=== PATIENT | male | born 1935 | race Caucasian/White ===

== ENCOUNTER → 2016-11-02 | Outpatient (REF) | payer MEDICARE ==
[~2016-11-02] MED LIST: AVOD0.5C OR; HYDR25TA6 OR; NORV5TAB OR; RANI75TA2 OR
[2016-11-04 00:11] LABS: Lyme Disease IgG/IgM Antibodie <0.91 ISR (0.00-0.90); Lyme Disease IgM Ab Quantitati <0.80 index (0.00-0.79)
== END ==
LOC: M LAB REF 10:38
PROVIDERS: ATTEND Nurse Practitioner Adult Health
DX: R53.83 Other fatigue (principal)

== ENCOUNTER 2018-09-12 12:36 | Day surgery (SDC) | payer MEDICARE ==
[~2018-09-12] VITALS: Ht 175.3 cm; Wt 79.8 kg
[~2018-09-12 12:36] MED LIST changes: +AMLO5TAB6 PO; +BRIM0.2S13 OS; +DORZOLAMIDE TIMOLOL OS; +DUTA1CAP PO; +FOLI1TAB11 PO; +HYDR25TAB PO; +ICAP1CAP PO; +LISI-542 PO; +NS 1,000 ML IV ONE; +OSTETAB13 PO; +PROB1CAP10 PO
[2018-09-12] MEDS ORDERED: LIDOCAINE 2% INJ 100 MG/5 ML SDV (FOR ANES.) As Ordered ONE (13:26)
[2018-09-12] MEDS ORDERED: PROPOFOL 200 MG/20 ML VIAL As Ordered ONE (13:26)
--- NOTE | 2018-09-12 13:56 | ROOR ---
Patient Name: Terry Sykes Procedure Date: 09/12/2018 1:24 PM Date of : 1935 Age: 82 Room: [facility] Gender: Male Note Status: Finalized Procedure: Total Colonoscopy to Cecum + Cold Snare Polypectomy + Hemoclips Indications: High risk colon cancer surveillance: Personal history of colonic polyps, Last colonoscopy 3 years ago Providers: Jose A Rogers MD Referring MD: GALLITO CROFT JR, MD Requesting Provider: Medicines: Monitored Anesthesia Care Complications: No immediate complications. Procedure: Pre-Anesthesia Assessment: - The heart rate, respiratory rate, oxygen saturations, blood pressure, adequacy of pulmonary ventilation, and response to care were monitored throughout the procedure. The Colonoscope was introduced through the anus and advanced to the cecum, identified by appendiceal orifice and ileocecal valve. The colonoscopy was performed without difficulty. The patient tolerated the procedure well. The quality of the bowel preparation was excellent. Findings: The perianal and digital rectal examinations were normal. A medium polyp was found at 25 cm proximal to the anus. The polyp was semi-pedunculated. The polyp was removed with a cold snare. Resection and retrieval were complete. To prevent bleeding after the polypectomy, five hemostatic clips were successfully placed (MR conditional). There was no bleeding at the end of the procedure. Multiple small and large-mouthed diverticula were found in the recto-sigmoid colon, sigmoid colon and descending colon. The exam was otherwise without abnormality on direct and retroflexion views. The terminal ileum appeared normal. Impression: - One medium polyp at 25 cm proximal to the anus, removed with a cold snare. Resected and retrieved. Clips (MR conditional) were placed. - Diverticulosis in the recto-sigmoid colon, in the sigmoid colon and in the descending colon. - The examination was otherwise normal on direct and retroflexion views. - The examined portion of the ileum was normal. - The exam was otherwise normal to the cecum. Recommendation: - Patient has a contact number available for emergencies. The signs and symptoms of potential delayed complications were discussed with the patient. Return to normal activities tomorrow. Written discharge instructions were provided to the patient. - High fiber diet. - Discharge patient to home. - Continue present medications. - Await pathology results. - Telephone GI clinic for pathology results in 1 week. - Repeat colonoscopy for surveillance based on pathology results. - Return to referring physician. - Check Portal Online for Path Results.([email or web address]) - The findings and recommendations were discussed with the patient's family. Jose A Rogers MD Jose A Rogers MD 09/12/2018 1:55:56 PM This report has been signed electronically. Number of Addenda: 0 Note Initiated On: 09/12/2018 1:24 PM Estimated Blood Loss: Estimated blood loss: none.
[2018-09-12 14:34] VITALS: BP 151/72
== END 2018-09-12 14:37 | disposition home or self-care (01) ==
LOC: M OPP 12:36
PROVIDERS: ATTEND Internal Medicine Gastroenterology
DX: Z86.010 Personal history of colon polyps (principal); D12.6 Benign neoplasm of colon, unspecified; K57.30 Diverticulosis of large intestine without perforation or abscess without bleeding; Z79.899 Other long term (current) drug therapy; Z87.891 Personal history of nicotine dependence

== ENCOUNTER → 2019-12-11 | Outpatient (REF) | payer MEDICARE ==
[~2019-12-11] MED LIST changes: -DUTA1CAP PO; +DUTA1CAP2 PO; -NS 1,000 ML IV ONE
[2019-12-13 17:07] LABS: Lyme Disease IgG/IgM Antibodie <0.91 ISR (0.00-0.90); Lyme Disease IgM Ab Quantitati <0.80 index (0.00-0.79)
== END ==
LOC: M LAB REF 10:31
PROVIDERS: ATTEND Internal Medicine
DX: M13.80 Other specified arthritis, unspecified site (principal); R53.83 Other fatigue

== ENCOUNTER → 2020-03-28 | Outpatient (CLI) | payer MEDICARE ==
[~2020-03-28] MED LIST changes: +AMLO1TAB24 PO; -AMLO5TAB6 PO
--- NOTE | 2020-03-28 11:52 | REPVR ---
PROCEDURE INFORMATION: Exam: US Pelvis Limited, Male Exam date and time: 03/28/2020 11:36 AM Age: 84 years old Clinical indication: Bladder; Urine retention; Additional info: Urinary retention TECHNIQUE: Imaging protocol: Real-time pelvic ultrasound with image documentation. COMPARISON: No relevant prior studies available. FINDINGS: Prostate: The prostate measures 4.2 x 4.1 x 4.5 cm. Bladder: The urinary bladder measures 4.9 x 2.6 x 5.2 cm prior to voiding, for an estimated volume of 43 mL. Ureteral jets were not visualized. Following voiding, it measures 1.9 x 1.6 x 1.6 cm, for an estimated volume of 3 mL. IMPRESSION: 1. Postvoid residual urinary bladder volume 3 mL. 2. Mild prostatomegaly. Electronically signed by: Jak Martins On 03/28/2020 11:52:42 AM
== END ==
LOC: M RAD 11:19
PROVIDERS: ATTEND Nurse Practitioner Adult Health
DX: N40.1 Benign prostatic hyperplasia with lower urinary tract symptoms (principal); R33.9 Retention of urine, unspecified

== ENCOUNTER 2021-05-12 12:58 | Inpatient (IN) | payer MEDICARE ==
[~2021-05-12] VITALS: Ht 175.3 cm; Wt 77.3 kg
[~2021-05-12 12:58] MED LIST changes: +HYDR-3490 PO; -HYDR25TAB PO; -LISI-542 PO; +LISI-898 PO
--- OUTSIDE RECORDS SUMMARY | 2021-05-12 13:04 | CCD | Continuity of Care Document ---
Author Author Terry BECKHAM P.A. Organization Unknown Address [address] [place] [address], [address] [address] Phone [phone] Problems Active Problems Provider Date Essential hypertension Ct Tavarez MD Onset: 12/21 Social History Type Date Description Comments Sex Unknown ETOH Use Denies alcohol use Tobacco Use Start: Unknown End: Unknown Patient is a former smoker 2 packs a day Smoking Status Reviewed: 12/22/19 Patient is a former smoker 2 packs a day Allergies and adverse reactions Description No Known Drug Allergies Medications Active Medications SIG Qnty Indications Ordering Provide r Date Euflexxa 20mg/2ML Soln Prefill Syr jorge luis robby knee #1 02/05/21 klf/cp robby knee #2 klf/hd 02/19/21, robby knees #3 klf/dw 02/26/2021 Rajinder Guevara MD 01/04/2020 Amlodipine Besylate 5mg Tablets Unknown Lisinopril 10mg Tablets Unknown Dutasteride 0.5mg Capsules Unknown Folic Acid 5mg Capsules Unknown Ascorbic Acid 500mg/5ML Liquid Unknown Preservision Areds Tablets Unknown Vitamin C 250mg Tablets Unknown Gleostine 10mg Capsules Unknown Immunizations Description No Information Available Vital Signs Date Vital Result Comment 04/30/2021 3:35pm Body Temperature 97.1 F Height 67 inches 5'7" Weight 169.00 lb BMI (Body Mass Index) 26.5 kg/m2 05/30/2020 1:16pm Body Temperature 97.1 F Height 69 inches 5'9" Weight 182.31 lb BMI (Body Mass Index) 26.9 kg/m2 Results Description No Information Available Procedures Date Code Description Status 04/30/2021 88721 Office/Outpatient Established Lo w MDM 20-29 Min Completed 04/30/2021 82969 X-Ray Hip Unilateral With Pelvis 2-3 Views Completed 04/30/2021 Inject/Drain Joint/Bursa Major C ompleted 02/26/2021 Inject/Drain Joint/Bursa Major C ompleted 02/19/2021 Inject/Drain Joint/Bursa Major C ompleted 02/05/2021 Inject/Drain Joint/Bursa Major C ompleted 01/03/2021 Inject/Drain Joint/Bursa Major C ompleted Medical Devices Description No Information Available Encounters Type Date Location Provider Dx Diagnosis Office Visit 04/30/2021 3:15p [place] Jak Beckham P.A. M16.11 Unilateral primary osteoarthritis, right hip M70.61 Trochanteric bursitis, right hip Office Visit 02/26/2021 2:15p [place] Arceliabora Guevara PA-C M17.0 Bilateral primary osteoarthritis of knee Office Visit 02/19/2021 1:00p [place] Arcelia LexiiElvis Guevara PA-C M17.0 Bilateral primary osteoarthritis of knee Office Visit 02/05/2021 1:00p [place] Arcelia ShultzElvis Guevara PA-C M17.0 Bilateral primary osteoarthritis of knee Office Visit 01/03/2021 2:00p [place] Maddie Galdamez PA-C M17.0 Bilateral primary osteoarthritis of knee Assessments Date Code Description Provider 04/30/2021 M16.11 Unilateral primary osteoarthriti s, right hip Jak Beckham, P.A. 04/30/2021 M70.61 Trochanteric bursitis, right hip Jak Beckham P.AElvis 02/26/2021 M17.0 Bilateral primary osteoarthritis of knee Arcelia L. HAWA Guevara 02/19/2021 M17.0 Bilateral primary osteoarthritis of knee Arcelia L. PATRICIA GuevaraC 02/05/2021 M17.0 Bilateral primary osteoarthritis of knee Arcelia L. HAWA Guevara 01/03/2021 M17.0 Bilateral primary osteoarthritis of knee Maddie Galdamez PA-C Plan of Treatment 04/30/2021 - Jak Beckham PElvisA.* M16.11 Unilateral primary osteoarthritis, right hip* Follow up:* prn * M70.61 Trochanteric bursitis, right hip Functional Status Description No Information Available Mental Status Description No Information Available Referrals Refer to Dr Reason for Referral Status Appt Date Maddie Galdamez PA-C 01/03/21 Euflexxa Robby Knee pe r ins no auth req based on medical necessity,passed to schedulers sw. Created 0 [address] [facility], [address] [place] [address] [phone]
--- OUTSIDE RECORDS SUMMARY | 2021-05-12 13:04 | CCD | Continuity of Care Document ---
Author Author Terry FONSECA PA-C Organization Unknown Address [address] [place] [address] Phone [phone] Problems Active Problems Provider Date Essential hypertension Ct Tavarez MD Onset: 12/21 Social History Type Date Description Comments Sex Unknown ETOH Use Denies alcohol use Tobacco Use Start: Unknown End: Unknown Patient is a former smoker 2 packs a day Smoking Status Reviewed: 12/22/19 Patient is a former smoker 2 packs a day Allergies, Adverse Reactions, Alerts Description No Known Drug Allergies Medications Active Medications SIG Qnty Indications Ordering Provide r Date Euflexxa 20mg/2ML Soln Prefill Syr jorge luis robby knee #1 02/05/21 klf/cp robby knee #2 klf/hd 02/19/21, robby knees #3 klf/dw 02/26/2021 Rajinder Fonseca MD 01/04/2020 Amlodipine Besylate 5mg Tablets Unknown Lisinopril 10mg Tablets Unknown Dutasteride 0.5mg Capsules Unknown Folic Acid 5mg Capsules Unknown Ascorbic Acid 500mg/5ML Liquid Unknown Preservision Areds Tablets Unknown Vitamin C 250mg Tablets Unknown Gleostine 10mg Capsules Unknown Immunizations Description No Information Available Vital Signs Date Vital Result Comment 05/30/2020 1:16pm Body Temperature 97.1 F Height 69 inches 5'9" Weight 182.31 lb BMI (Body Mass Index) 26.9 kg/m2 12/22/2019 9:46am Body Temperature 97.4 F Height 69 inches 5'9" Weight 180.00 lb BMI (Body Mass Index) 26.6 kg/m2 Results Description No Information Available Procedures Date Code Description Status 02/26/2021 Inject/Drain Joint/Bursa Major C ompleted 02/19/2021 Inject/Drain Joint/Bursa Major C ompleted 02/05/2021 Inject/Drain Joint/Bursa Major C ompleted 01/03/2021 Inject/Drain Joint/Bursa Major C ompleted Medical Devices Description No Information Available Encounters Type Date Location Provider Dx Diagnosis Office Visit 02/26/2021 2:15p [place] Arcelia L. HAWA Fonseca M17.0 Bilateral primary osteoarthritis of knee Office Visit 02/19/2021 1:00p [place] Arcelia L. HAWA Fonseca M17.0 Bilateral primary osteoarthritis of knee Office Visit 02/05/2021 1:00p [place] Arcelia L. HAWA Fonseca M17.0 Bilateral primary osteoarthritis of knee Office Visit 01/03/2021 2:00p [place] Maddie Galdamez PA-C M17.0 Bilateral primary osteoarthritis of knee Assessments Date Code Description Provider 02/26/2021 M17.0 Bilateral primary osteoarthritis of knee Arcelia L. HAWA Fonseca 02/19/2021 M17.0 Bilateral primary osteoarthritis of knee Arcelia L. HAWA Fonseca 02/05/2021 M17.0 Bilateral primary osteoarthritis of knee Arcelia L. HAWA Fonseca 01/03/2021 M17.0 Bilateral primary osteoarthritis of knee Maddie Galdamez PA-C Plan of Treatment 01/03/2021 - Maddie Galdamez PA-C* M17.0 Bilateral primary osteoarthritis of knee* Follow up:* PRN Functional Status Description No Information Available Mental Status Description No Information Available Referrals Refer to Reason for Referral Status Appt Date Maddie Galdamez PA-C 01/03/21 Euflexxa Robby Knee pe r ins no auth req based on medical necessity,passed to schedulers elsa. Teresa 0 [address] [facility], [address] [place] [address] [phone]
--- OUTSIDE RECORDS SUMMARY | 2021-05-12 13:04 | CCD | Continuity of Care Document ---
Author Author Terry FONSECA PA-C Organization Unknown Address [address] [place] [address] Phone [phone] Problems Active Problems Provider Date Essential hypertension [...] #1 02/05/21 klf/cp robby knee #2 klf/hd 02/19/21 Jaime Nguyen MD 01/04/2020 Amlodipine Besylate 5mg Tablets Unknown [...] Information Available Procedures Date Code Description Status 02/19/202134592 Inject/Drain Joint/Bursa Major C ompleted 02/05/202189056 Inject/Drain Joint/Bursa Major C ompleted 01/03/2021 Inject/Drain Joint/Bursa Major C ompleted Medical Devices Description No Information Available Encounters Type Date Location Provider Dx Diagnosis Office Visit 02/19/2021 1:00p [place] Arcelia L. HAWA Fonseca M17.0 Bilateral primary osteoarthritis of knee Office Visit 02/05/2021 1:00p [place] Arcelia Ari HAWA Fonseca M17.0 Bilateral primary osteoarthritis of knee Office Visit 01/03/2021 2:00p [place] Maddie Galdamez PA-C M17.0 Bilateral primary osteoarthritis of knee Assessments Date Code Description Provider 02/19/2021 M17.0 Bilateral primary osteoarthritis of knee Arcelia Chapman HAWA Fonseca 02/05/2021 M17.0 Bilateral primary osteoarthritis of knee Arcelia L. HAWA Fonseca 01/03/2021 M17.0 Bilateral primary osteoarthritis of knee Maddie Galdamez PA-C Plan of Treatment Future Appointment(s):* 02/26/2021 2:15 pm - Arcelia Fonseca PA-C at [place] Functional Status Description No Information Available Mental Status Description No Information Available Referrals Refer to Reason for Referral Status Appt Date Maddie Galdamez PA-C 01/03/21 Euflexxa Robby Knee pe r ins no auth req based on medical necessity,passed to schedulers elsa. Created 0 [facility], [address] [place] [address] [phone]
--- OUTSIDE RECORDS SUMMARY | 2021-05-12 13:04 | CCD | Continuity of Care Document ---
Author Author Terry FONSECA PA-C Organization Unknown Address [address] [place] [address] Phone [phone] Problems Active Problems Provider Date Essential hypertension [...] Provider Dx Diagnosis Office Visit 02/26/2021 2:15p [place] Arcelia L. HAWA Fonseca M17.0 Bilateral primary osteoarthritis of knee Office Visit 02/19/2021 1:00p [place] Arcelia L. HAWA Fonseca M17.0 Bilateral primary osteoarthritis of knee Office Visit 02/05/2021 1:00p [place] Arcelia L. HAWA Fonseca M17.0 Bilateral primary osteoarthritis of knee Office Visit 01/03/2021 2:00p [place] Maddie Galdamez PA-C M17.0 Bilateral primary osteoarthritis [...] necessity,passed to schedulers elsa. Teresa 0 [address] [facility], [address] [place] [address] [phone]
--- OUTSIDE RECORDS SUMMARY | 2021-05-12 13:04 | CCD | Continuity of Care Document ---
Author Author Terry BECKHAM P.A. Organization Unknown Address [address] [place] [address], [address] [address] Phone [phone] Problems Active Problems Provider Date Essential hypertension [...] Available Procedures Date Code Description Status 04/30/2021 21817 Office/Outpatient Established Lo w MDM 20-29 Min Completed 04/30/2021 88918 X-Ray Hip Unilateral With Pelvis 2-3 Views Completed 04/30/2021 Inject/Drain Joint/Bursa Major C ompleted 02/26/2021 Inject/Drain Joint/Bursa Major C ompleted 02/19/2021 Inject/Drain Joint/Bursa Major C ompleted 02/05/2021 Inject/Drain Joint/Bursa Major C ompleted 01/03/2021 Inject/Drain Joint/Bursa Major C ompleted Medical Devices Description No Information Available Encounters Type Date Location Provider Dx Diagnosis Office Visit 04/30/2021 3:15p [place] Jak Beckham P.A. M16.11 Unilateral primary osteoarthritis, right hip M70.61 Trochanteric bursitis, right hip Office Visit 02/26/2021 2:15p [place] Arceliabora Guevara PA-C M17.0 Bilateral primary osteoarthritis of knee Office Visit 02/19/2021 1:00p [place] Arcelia LexiiElvis Guevara PA-C M17.0 Bilateral primary osteoarthritis of knee Office Visit 02/05/2021 1:00p [place] Arcelia ShultzElvis Guevara PA-C M17.0 Bilateral primary osteoarthritis of knee Office Visit 01/03/2021 2:00p [place] Maddie Galdamez PA-C M17.0 Bilateral primary osteoarthritis [...] necessity,passed to schedulers sw. Created 0 [address] [facility], [address] [place] [address] [phone]
--- OUTSIDE RECORDS SUMMARY | 2021-05-12 13:04 | CCD | Continuity of Care Document ---
Author Author Terry SWEENEY PA-C Organization Unknown Address [address] [place] [address] Phone [phone] Problems Active Problems Provider Date Essential hypertension [...] Provider Dx Diagnosis Office Visit 02/26/2021 2:15p [place] Arcelia L. HAWA Guevara M17.0 Bilateral primary osteoarthritis of knee Office Visit 02/19/2021 1:00p [place] Arcelia L. HAWA Guevara M17.0 Bilateral primary osteoarthritis of knee Office Visit 02/05/2021 1:00p [place] Arcelia L. HAWA Guevara M17.0 Bilateral primary osteoarthritis of knee Office Visit 01/03/2021 2:00p [place] Maddie Sweeney PA-C M17.0 Bilateral primary osteoarthritis of knee Assessments Date Code Description Provider 02/26/2021 M17.0 Bilateral primary osteoarthritis of knee Arcelia L. HAWA Guevara 02/19/2021 M17.0 Bilateral primary osteoarthritis of knee Arcelia L. HAWA Guevara 02/05/2021 M17.0 Bilateral primary osteoarthritis of knee Arcelia L. HAWA Guevara 01/03/2021 M17.0 Bilateral primary osteoarthritis of knee Maddie Sweeney PA-C Plan of Treatment 01/03/2021 - Maddie Sweeney PA-C* M17.0 Bilateral primary osteoarthritis of knee* Follow up:* PRN Functional Status Description No Information Available Mental Status Description No Information Available Referrals Refer to Reason for Referral Status Appt Date Maddie Sweeney PA-C 01/03/21 Euflexxa Robby Knee pe r ins no auth req based on medical necessity,passed to schedulers elsa. Teresa 0 [address] [facility], [address] [place] [address] [phone]
--- OUTSIDE RECORDS SUMMARY | 2021-05-12 13:04 | CCD | Continuity of Care Document ---
Author Author Terry FONSECA PA-C Organization Unknown Address [address] [place] [address] Phone [phone] Problems Active Problems Provider Date Essential hypertension [...] Information Available Procedures Date Code Description Status 02/19/202113638 Inject/Drain Joint/Bursa Major C ompleted 02/05/202112299 Inject/Drain Joint/Bursa Major C ompleted 01/03/2021 Inject/Drain Joint/Bursa Major C ompleted Medical Devices Description No Information Available Encounters Type Date Location Provider Dx Diagnosis Office Visit 02/19/2021 1:00p [place] Arcelia Chapman HAWA Fonseca M17.0 Bilateral primary osteoarthritis of knee Office Visit 02/05/2021 1:00p [place] Arcelia Ari HAWA Fonseca M17.0 Bilateral primary osteoarthritis of knee Office Visit 01/03/2021 2:00p [place] Maddie Galdamez PA-C M17.0 Bilateral primary osteoarthritis of knee Assessments Date Code Description Provider 02/19/2021 M17.0 Bilateral primary osteoarthritis of knee Arcelia Chapman HAWA Fonseca 02/05/2021 M17.0 Bilateral primary osteoarthritis of knee Arcelia L. HAWA Fonseca 01/03/2021 M17.0 Bilateral primary osteoarthritis of knee Maddie Galdamez PA-C Plan of Treatment Future Appointment(s):* 02/26/2021 2:15 pm - Arcelia Fonseca PA-C at [place] 01/03/2021 - Maddie Galdamez PA-C* M17.0 Bilateral primary osteoarthritis of knee* Follow up:* PRN Functional Status Description No Information Available Mental Status Description No Information Available Referrals Refer to Dr Reason for Referral Status Appt Date Maddie Galdamez PA-C 01/03/21 Euflexxa Robby Knee pe r ins no auth req based on medical necessity,passed to schedulers sw. Created 0 [address] [facility], [address] [place] [address] [phone]
--- OUTSIDE RECORDS SUMMARY | 2021-05-12 13:05 | CCD ---
Author Author [facility] Organization [facility] Address Unknown Phone Unavailable Care Team Providers Care Pathology Laboratory Director Name Role Phone Janet BROWN MD Unavailable Unavailable Janet BROWN MD Unavailable Unavailable Janet BROWN MD Unavailable Unavailable Janet BROWN MD Unavailable Unavailable Janet BROWN MD Unavailable Unavailable Janet BROWN MD Unavailable Unavailable Janet BROWN MD Unavailable Unavailable Janet BROWN MD Unavailable Unavailable Janet BROWN MD Unavailable Unavailable Janet BROWN MD Unavailable Unavailable Janet BROWN MD Unavailable Unavailable Janet BROWN MD Unavailable Unavailable Janet BROWN MD Unavailable Unavailable Janet BROWN MD Unavailable Unavailable Janet BROWN MD Unavailable Unavailable Janet BROWN MD Unavailable Unavailable Janet BROWN MD Unavailable Unavailable Janet BROWN MD Unavailable Unavailable Janet BROWN MD Unavailable Unavailable Janet BROWN MD Unavailable Unavailable Janet BROWN MD Unavailable Unavailable Janet BROWN MD Unavailable Unavailable Janet BROWN MD Unavailable Unavailable Janet BROWN MD Unavailable Unavailable Janet BROWN MD Unavailable Unavailable Janet BROWN MD Unavailable Unavailable Janet BROWN MD Unavailable Unavailable Janet BROWN MD Unavailable Unavailable Janet BROWN MD Unavailable Unavailable Janet BROWN MD Unavailable Unavailable Janet BROWN MD Unavailable Unavailable Janet BROWN MD Unavailable Unavailable MADISSOOJanet MD Unavailable Unavailable MADISSOOJanet MD Unavailable Unavailable MADISSOOJanet MD Unavailable Unavailable MADISSOOJanet MD Unavailable Unavailable MADISSOOJanet MD Unavailable Unavailable MADISSOO, Janet FERREIRA MD Unavailable Unavailable MADISSOOJanet MD Unavailable Unavailable MADISSOOJanet MD Unavailable Unavailable MADISSOOJanet MD Unavailable Unavailable MADISSOO, Janet FERREIRA MD Unavailable Unavailable MADISSOO, Janet FERREIRA MD Unavailable Unavailable MADISSOO, Janet FERREIRA MD Unavailable Unavailable MADISSOO, Janet FERREIRA MD Unavailable Unavailable MADISSOO, Janet FERREIRA MD Unavailable Unavailable MADISSOO, Janet FERREIRA MD Unavailable Unavailable MADISSOO, Janet FERREIRA MD Unavailable Unavailable MADISSOO, Janet FERREIRA MD Unavailable Unavailable MADISSOO, Janet FERREIRA MD Unavailable Unavailable MADISSOO, Janet FERREIRA MD Unavailable Unavailable MADISSOO, Janet FERREIRA MD Unavailable Unavailable MADISSOOJanet MD Unavailable Unavailable MADISSOOJanet MD Unavailable Unavailable MADISSOOJanet MD Unavailable Unavailable MADISSOOJaent MD Unavailable Unavailable MADISSOOJanet MD Unavailable Unavailable MADISSOOJanet MD Unavailable Unavailable MADISSOOJanet MD Unavailable Unavailable MADISSOOJanet MD Unavailable Unavailable MADISSOOJanet MD Unavailable Unavailable MADISSOOJanet MD Unavailable Unavailable MADISSOOJanet MD Unavailable Unavailable MADDEDRICKOOJanet MD Unavailable Unavailable MADDEDRICKOOJanet MD Unavailable Unavailable MADISSOOJanet MD Unavailable Unavailable MADISSOOJanet MD Unavailable Unavailable MADISSOOJanet MD Unavailable Unavailable MADDEDRICKOOJanet MD Unavailable Unavailable MADDEDRICKOOJanet MD Unavailable Unavailable MADDEDRICKOOJanet MD Unavailable Unavailable MADDEDRICKOOJanet MD Unavailable Unavailable MADDEDRICKOOJanet MD Unavailable Unavailable MADDEDRICKOOJanet MD Unavailable Unavailable MADDEDRICKOOJanet MD Unavailable Unavailable MADDEDRICKOOJanet MD Unavailable Unavailable MADDEDRICKOOJanet MD Unavailable Unavailable MADDEDRICKOOJanet MD Unavailable Unavailable MADDEDRICKOOJanet MD Unavailable Unavailable MADISSOOJanet MD Unavailable Unavailable MADISSOO, Janet FERREIRA MD Unavailable Unavailable MADISSOO, Janet FERREIRA MD Unavailable Unavailable MADISSOO, Janet HANNA MD Unavailable Unavailable MADISSOOJanet MD Unavailable Unavailable MADISSOO, Janet FERREIRA MD Unavailable Unavailable Fish, [facility], PA-C Unavailable Unavailabl e Fish, [facility], PA-C Unavailable Unavailabl e Fish, [facility], PA-C Unavailable Unavailabl e Fish, [facility], PA-C Unavailable Unavailabl e Fish, [facility], PA-C Unavailable Unavailabl e Fish, [facility], PA-C Unavailable Unavailabl e Fish, [facility], PA-C Unavailable Unavailabl e Fish, [facility], PA-C Unavailable Unavailabl e Fish, [facility], PA-C Unavailable Unavailabl e Fish, [facility], PA-C Unavailable Unavailabl e Fish, [facility], PA-C Unavailable Unavailabl e Fish, [facility], PA-C Unavailable Unavailabl e Fish, [facility], PA-C Unavailable Unavailabl e Fish, [facility], PA-C Unavailable Unavailabl e Fish, [facility], PA-C Unavailable Unavailabl e Fish, [facility], PA-C Unavailable Unavailabl e Fish, [facility], PA-C Unavailable Unavailabl e Fish, [facility], PA-C Unavailable Unavailabl e Fish, [facility], PA-C Unavailable Unavailabl e Fish, [facility], PA-C Unavailable Unavailabl e Fish, [facility], PA-C Unavailable Unavailabl e Fish, [facility], PA-C Unavailable Unavailabl e Fish, [facility], PA-C Unavailable Unavailabl e Fish, [facility], PA-C Unavailable Unavailabl e Fish, [facility], PA-C Unavailable Unavailabl e Fish, [facility], PA-C Unavailable Unavailabl e Fish, [facility], PA-C Unavailable Unavailabl e Fish, [facility], PA-C Unavailable Unavailabl e Fish, [facility], PA-C Unavailable Unavailabl e Fish, Lea Arcelia MPAS, PA-C Unavailable Unavailabl e Fish, Lea Paniagua MPAS, PA-C Unavailable Unavailabl e Fish, Lea Paniagua MPAS, PA-C Unavailable Unavailabl e Fish, Lea Paniagua MPAS, PA-C Unavailable Unavailabl e Fish, Lea Paniagua MPAS, PA-C Unavailable Unavailabl e Fish, Lea Paniagua MPAS, PA-C Unavailable Unavailabl e Fish, Lea Paniagua MPAS, PA-C Unavailable Unavailabl e MCELHERAN, JAC PA Unavailable Unavailable MCELHERAN, JAC PA Unavailable Unavailable MCELHERAN, JAC PA Unavailable Unavailable MCELHERAN, JAC PA Unavailable Unavailable MCELHERAN, JAC PA Unavailable Unavailable MCELHERAN, JAC PA Unavailable Unavailable MCELHERAN, JAC PA Unavailable Unavailable MCELHERAN, JAC PA Unavailable Unavailable MCELHERAN, JAC PA Unavailable Unavailable MCELHERAN, JAC PA Unavailable Unavailable MCELHERAN, JAC PA Unavailable Unavailable MCELHERAN, JAC PA Unavailable Unavailable MCELHERAN, JAC PA Unavailable Unavailable MCELHERAN, JAC PA Unavailable Unavailable MCELHERAN, JAC PA Unavailable Unavailable MCELHERAN, JAC PA Unavailable Unavailable MCELHERAN, JAC PA Unavailable Unavailable MCELHERAN, JAC PA Unavailable Unavailable MCELHERAN, JAC PA Unavailable Unavailable MCELHERAN, JAC PA Unavailable Unavailable MCELHERAN, JAC PA Unavailable Unavailable MCELHERAN, JAC PA Unavailable Unavailable MCELHERAN, JAC PA Unavailable Unavailable MCELHERAN, JAC PA Unavailable Unavailable MCELHERAN, JAC PA Unavailable Unavailable MCELHERAN, JAC PA Unavailable Unavailable MCELHERAN, JAC PA Unavailable Unavailable MCELHERAN, JAC PA Unavailable Unavailable MCELHERAN, JAC PA Unavailable Unavailable Edgardo Valenzuela MD Unavailable Unavailable Edgardo Valenzuela MD Unavailable Unavailable Edgardo Valenzuela MD Unavailable Unavailable Edgardo Valenzuela MD Unavailable Unavailable Edgardo Valenzuela MD Unavailable Unavailable Edgardo Valenzuela MD Unavailable Unavailable [facility] CenterEdgardo canela MD Unavailable Unavailable NicolasEdgardo canela MD Unavailable Unavailable [facility] CenterEdgardo canela MD Unavailable Unavailable NicolasEdgardo canela MD Unavailable Unavailable NicolasEdgardo canela MD Unavailable Unavailable [place] CenterEdgardo canela MD Unavailable Unavailable [place] CenterEdgardo canela MD Unavailable Unavailable NicolasEdgardo canela MD Unavailable Unavailable NicolasEdgardo canela MD Unavailable Unavailable [place] CenterEdgardo MD Unavailable Unavailable NicolasEdgardo MD Unavailable Unavailable NicolasEdgardo MD Unavailable Unavailable NicolasEdgardo MD Unavailable Unavailable NciolasEdgardo MD Unavailable Unavailable [place] CenterEdgardo MD Unavailable Unavailable NicolasEdgardo MD Unavailable Unavailable NicolasEdgardo MD Unavailable Unavailable NicolasEdgardo MD Unavailable Unavailable NicolasEdgardo MD Unavailable Unavailable [place] CenterEdgardo MD Unavailable Unavailable [place] CenterEdgardo MD Unavailable Unavailable NicolasEdgardo MD Unavailable Unavailable NicolasEdgardo MD Unavailable Unavailable NicolasEdgardo MD Unavailable Unavailable [place] CenterEdgardo MD Unavailable Unavailable [place] CenterEdgardo MD Unavailable Unavailable [place] CenterEdgadro MD Unavailable Unavailable NicolasEdgardo MD Unavailable Unavailable NicolasEdgardo MD Unavailable Unavailable NicolasEdgardo MD Unavailable Unavailable [place] CenterEdgardo MD Unavailable Unavailable NicolasEdgardo MD Unavailable Unavailable [place] CenterEdgardo MD Unavailable Unavailable NicolasEdgardo MD Unavailable Unavailable NicolasEdgardo MD Unavailable Unavailable [place] CenterEdgardo MD Unavailable Unavailable NicolasEdgardo MD Unavailable Unavailable [place] CenterEdgardo MD Unavailable Unavailable NicolasEdgardo MD Unavailable Unavailable NicolasEdgardo MD Unavailable Unavailable [place] CenterEdgardo MD Unavailable Unavailable NicolasEdgardo MD Unavailable Unavailable NicolasEdgardo MD Unavailable Unavailable NicolasEdgardo canela MD Unavailable Unavailable NicolasEdgardo canela MD Unavailable Unavailable NicolasEdgardo MD Unavailable Unavailable [place] CenterEdgardo MD Unavailable Unavailable NicolasEdgardo canela MD Unavailable Unavailable [place] CenterEdgardo MD Unavailable Unavailable [place] CenterEdgardo canela MD Unavailable Unavailable NicolasEdgardo canela MD Unavailable Unavailable NicolasEdgardo canela MD Unavailable Unavailable [place] CenterEdgardo MD Unavailable Unavailable NicolasEdgardo MD Unavailable Unavailable NicolasEdgardo MD Unavailable Unavailable NicolasEdgardo MD Unavailable Unavailable [place] CenterEdgardo MD Unavailable Unavailable [place] CenterEdgardo MD Unavailable Unavailable NicolasEdgardo MD Unavailable Unavailable [place] CenterEdgardo MD Unavailable Unavailable [place] CenterEdgardo MD Unavailable Unavailable [place] CenterEdgardo MD Unavailable Unavailable [place] CenterEdgardo MD Unavailable Unavailable NicolasEdgardo MD Unavailable Unavailable NicolasEdgardo MD Unavailable Unavailable Edgardo Valenzuela MD Unavailable Unavailable Edgardo Valenzuela MD Unavailable Unavailable Edgardo Valenzuela MD Unavailable Unavailable Edgardo Valenzuela MD Unavailable Unavailable Edgardo Valenzuela MD Unavailable Unavailable Edgardo Valenzuela MD Unavailable Unavailable Edgardo Valenzuela MD Unavailable Unavailable Edgardo Valenzuela MD Unavailable Unavailable Edgardo Valenzuela MD Unavailable Unavailable Edgarod Valenzuela MD Unavailable Unavailable Edgardo Valenzuela MD Unavailable Unavailable Edgardo Valenzuela MD Unavailable Unavailable Edgardo Valenzuela MD Unavailable Unavailable Edgardo Valenzuela MD Unavailable Unavailable Edgardo Valenzuela MD Unavailable Unavailable Galdamez, Maddie PA Unavailable Unavailable Galdamez, Maddie PA Unavailable Unavailable Galdamez, Maddie PA Unavailable Unavailable Galdamez, Maddie PA Unavailable Unavailable Galdamez, Maddie PA Unavailable Unavailable Galdamez, Maddie PA Unavailable Unavailable Galdamez, Maddie PA Unavailable Unavailable Galdamez, Maddie PA Unavailable Unavailable [place], J Alexia ANP Unavailable Unavailable [place], J Alexia ANP Unavailable Unavailable [place], J Alexia ANP Unavailable Unavailable [place], J Alexia ANP Unavailable Unavailable [place], J Alexia ANP Unavailable Unavailable [place], J Alexia ANP Unavailable Unavailable [place], J Alexia ANP Unavailable Unavailable [place], J Alexia ANP Unavailable Unavailable [place], J Alexia ANP Unavailable Unavailable [place], J Alexia ANP Unavailable Unavailable [place], J Alexia ANP Unavailable Unavailable [place], J Alexia ANP Unavailable Unavailable [place], J Alexia ANP Unavailable Unavailable [place], J Alexia ANP Unavailable Unavailable [place], J Alexia ANP Unavailable Unavailable [place], J Alexia ANP Unavailable Unavailable [place], J Alexia ANP Unavailable Unavailable [place], J Alexia ANP Unavailable Unavailable [place], J Alexia ANP Unavailable Unavailable [place], J Alexia ANP Unavailable Unavailable [place], J Alexia ANP Unavailable Unavailable [place], J Alexia ANP Unavailable Unavailable [place], J Alexia ANP Unavailable Unavailable [place], J Alexia ANP Unavailable Unavailable [place], J Alexia ANP Unavailable Unavailable [place], J Alexia ANP Unavailable Unavailable [place], J Alexia ANP Unavailable Unavailable [place], J Alexia ANP Unavailable Unavailable [place], J Alexia ANP Unavailable Unavailable [place], J Alexia ANP Unavailable Unavailable [place], J Alexia ANP Unavailable Unavailable [place], J Alexia ANP Unavailable Unavailable [place], J Alexia ANP Unavailable Unavailable [place], J Alexia ANP Unavailable Unavailable [place], J Alexia ANP Unavailable Unavailable [place], J Alexia ANP Unavailable Unavailable [place], J Alexia ANP Unavailable Unavailable [place], J Alexia ANP Unavailable Unavailable [place], J Alexia ANP Unavailable Unavailable [place], J Alexia ANP Unavailable Unavailable [place], J Alexia ANP Unavailable Unavailable [place], J Alexia ANP Unavailable Unavailable [place], J Aelxia ANP Unavailable Unavailable [place], J Alexia ANP Unavailable Unavailable [place], J Alexia ANP Unavailable Unavailable [place], J Alexia ANP Unavailable Unavailable [place], J Alexia ANP Unavailable Unavailable [place], J Alexia ANP Unavailable Unavailable [place], J Alexia ANP Unavailable Unavailable [place], J Alexia ANP Unavailable Unavailable [place], J Alexia ANP Unavailable Unavailable [place], J Alexia ANP Unavailable Unavailable [place], J Alexia ANP Unavailable Unavailable [place], J Alexia ANP Unavailable Unavailable [place], J Alexia ANP Unavailable Unavailable [place], J Alexia ANP Unavailable Unavailable [place], J Alexia ANP Unavailable Unavailable [place], J Alexia ANP Unavailable Unavailable [place], J Alexia ANP Unavailable Unavailable [place], J Alexia ANP Unavailable Unavailable [place], J Alexia ANP Unavailable Unavailable [place], J Alexia ANP Unavailable Unavailable [place], J Alexia ANP Unavailable Unavailable [place], J Alexia ANP Unavailable Unavailable Re-disclosure Warning The records that you are about to access may contain information from federally-assisted alcohol or drug abuse programs. If such information is present, then the following federally mandated warning applies: This information has been disclosed to you from records protected by federal confidentiality rules (42 CFR part 2). The federal rules prohibit you from making any further disclosure of this information unless further disclosure is expressly permitted by the written consent of the person to whom it pertains or as otherwise permitted by 42 CFR part 2. A general authorization for the release of medical or other information is NOT sufficient for this purpose. The Federal rules restrict any use of the information to criminally investigate or prosecute any alcohol or drug abuse patient.The records that you are about to access may contain highly sensitive health information, the redisclosure of which is protected by Article 27-F of the [facility] Public Health law. If you continue you may have access to information: Regarding HIV / AIDS; Provided by facilities licensed or operated by the [facility] Office of Mental Health; or Provided by the [facility] Office for People With Developmental Disabilities. If such information is present, then the following [facility] mandated warning applies: This information has been disclosed to you from confidential records which are protected by state law. State law prohibits you from making any further disclosure of this information without the specific written consent of the person to whom it pertains, or as otherwise permitted by law. Any unauthorized further disclosure in violation of state law may result in a fine or assisted sentence or both. A general authorization for the release of medical or other information is NOT sufficient authorization for further disc losure. Family History Family Member Name Family Member Gender Family Member Status Date o f Status Description Data Source(s) Unknown Unknown Problem [facility] ([facility]) Unknown Female Problem [facility] ([facility]) Encounters Encounter Providers Location Date Indications Data Source(s ) OFFICE OUTPATIENT VISIT 15 MINUTES Attender: JAC MATTHEWS Physical Therapy 04/30/2021 03:15:00 PM EDT [facility] ([facility]) Office Visit Attender: Arcelia JOSHUA PA-C Physical Therapy 02/26/2021 02:15:00 PM EDT [facility] ([facility]) Office Visit Attender: Arcelia JOSHUA PA-C Physical Therapy 02/19/2021 01:00:00 PM EDT [facility] ([facility]) Office Visit Attender: Arcelia JOSHUA PA-C Physical Therapy 02/05/2021 01:00:00 PM EDT [facility] ([facility]) Office Visit Attender: Maddie MATTHEWS Physical Therapy 12/11 02:00:00 PM EDT [facility] ([facility]) Outpatient Attender: Thiago Wang 0 12/13/2020 11:40:00 AM EDT [facility] ([facility] ) Outpatient Attender: Thiago Wang 1 08/12/2019 07:40:00 AM EST [facility] ([facility] ) Outpatient Attender: HANNA Dillon/ Raymon king 04/09/2020 09:10:00 AM EDT [facility] ([facility]) Outpatient Attender: Alexia Wang 10:15:00 AM EDT [facility] ([facility] ) Immunizations Vaccine Date Status Description Data Source(s) COVID-19 VACCINE Moderna 08/26/2020 12:00:00 AM EST completed [facility] Vaccine Series Complete: YESThis Data wa s Submitted to [facility] [employer]. COVID-19 VACCINE Moderna 07/29/2020 12:00:00 AM EST completed [facility] Vaccine Series Complete: NOThis Data was Submitted to [facility] [employer]. Influenza, injectable, MDCK, preservative free, maria c valent 04/12/2020 09:03:00 AM EDT completed [facility] Influenza, injectable, MDCK, preservative free, maria c valent 04/12/2020 07:50:00 AM EDT completed [facility] ([facility]) Medications Medication Brand Name Start Date Product Form Dose Route Admi nistrative Instructions Pharmacy Instructions Status Indications Reaction Description Data Source(s) 24 HR mirabegron 50 MG Extended Release Oral Tablet [Myrbetr iq] Myrbetriq 10/22/2020 12:00:00 AM EDT ORAL completed [facility] ([facility]) Administration Of Flu Vaccine 04/12/2020 12:00:00 AM EDT completed [facility] Medication administered onsite 24 HR mirabegron 50 MG Extended Release Oral Tablet [Myrbetr iq] Myrbetriq 04/09/2020 12:00:00 AM EDT ORAL active [facility] ([facility]) Insurance Providers Payer name Policy type / Coverage type Policy ID Covered republican ID Covered republican's relationship to kyle Policy Kyle Plan Information MEDICARE [id number] SP [id number] Medicare Medigap Part B [id number] Self [id number] MEDICARE [id number] SP [id number] MEDICARE [id number] SP [id number] A Medicare Natl Govt Servic Medicare Primary [id number] Self [id number] Medicare Natl Govt Servic Medicare Primary [id number] Self [id number] Medicare Natl Govt Servic Medicare Primary [id number] Self [id number] Medicare Natl Govt Servic Medicare Primary [id number] Self [id number] Medicare Natl Govt Servic Medicare Primary [id number] Self Medicare Medicare Primary [id number] Self [id number] A [employer] Supplemental Plan Medigap Part B [id number] Self [employer] Healthcare Opt Medigap Part B [id number] Self [id number] MEDICARE C [id number] S [id number] A AARP O [id number] S [id number] AARP HEALTH CARE OPTIONS [id number] SP [id number] MEDICARE C [id number] S [id number] AARP O [id number] S [id number] AARP HEALTH CARE OPTIONS [id number] SP [id number] Aarp Supplemental Plan Medigap Part B [id number] Self [id number] Medicare Medicare Primary [id number] Self [id number] Aarp Healthcare Opt Medigap Part B [id number] Self Aarp Health Care Medigap Part B [id number] Self A[employer] Health Care Options Medigap Part B [id number] Self [id number] Medicare [place] Medicare Primary [id number] Self 1 [id number] Problems, Conditions, and Diagnoses Code Display Name Description Problem Type Effective Dates Data Source(s) [id number] Overactive bladder Overactive bladder Problem 12:00:00 AM EDT [facility] ([facility]) Surgeries/Procedures Procedure Description Date Indications Data Source(s) ARTHROCENTESIS ASPIR&/INJECTION MAJOR JT/BURSA 021 12:00:00 AM EDT [facility] ([facility]) X-Ray Hip Unilateral With Pelvis 2-3 Views 04/30/2021 12:00:00 AM EDT [facility] ([facility]) OFFICE OUTPATIENT VISIT 15 MINUTES 04/30/2021 12:00:00 AM EDT [facility] ([facility]) ARTHROCENTESIS ASPIR&/INJECTION MAJOR JT/BURSA 021 12:00:00 AM EDT [facility] ([facility]) ARTHROCENTESIS ASPIR&/INJECTION MAJOR JT/BURSA 021 12:00:00 AM EDT [facility] ([facility]) ARTHROCENTESIS ASPIR&/INJECTION MAJOR JT/BURSA 021 12:00:00 AM EDT [facility] ([facility]) ARTHROCENTESIS ASPIR&/INJECTION MAJOR JT/BURSA 021 12:00:00 AM EDT [facility] ([facility]) OFFICE OUTPATIENT VISIT 25 MINUTES 12/13/2020 12:00:00 AM EDT [facility] ([facility]) ECG ROUTINE ECG W/LEAST 12 LDS W/I&R 06/11/2020 12:00: 00 AM EST [facility] ([facility]) Colonoscopy 04/09/2020 12:00:00 AM EDT M EDENT ([facility]) ALEKSANDAR POST-VOIDING RESIDUAL URINE&/BLDR CAP 04/09/2020 12:00:00 AM EDT [facility] ([facility]) ARTHROCENTESIS ASPIR&/INJECTION MAJOR JT/BURSA 020 12:00:00 AM EDT [facility] ([facility]) Results ID Date Data Source [id number] 12/13/2020 11:35:00 AM EDT [facility] ([facility]) Name Value Range Interpretation Code Description Data Nano rce(s) Supporting Document(s) Cholesterol [Mass/volume] in Serum or Plasma 212 mg/dL 131-200 [facility] ([facility]) Triglyceride [Mass/volume] in Serum or Plasma 125 mg/dL 30-150 [facility] ([facility]) Cholesterol in HDL [Mass/volume] in Serum or Plasma 42 mg/dL 35-60 [facility] ([facility]) Cholesterol in LDL [Mass/volume] in Serum or Plasma by calcu lation 145 CALC 50-159 [facility] ID Date Data Source [id number] 12/13/2020 11:35:00 AM EDT [facility] ([facility]) Name Value Range Interpretation Code Description Data Nano rce(s) Supporting Document(s) Glucose mean value [Mass/volume] in Blood Estimated fr om glycated hemoglobin 137 mg/dL 60-110 [facility] Hemoglobin A1c/Hemoglobin.total in Blood 6.4 % [facility] ([facility]) Lab Result Notes: Pre-Diabetes 5.7 - 6.4 % Diabetes = or > 6.5% ID Date Data Source [id number] 12/13/2020 11:35:00 AM EDT [facility] ([facility]) Name Value Range Interpretation Code Description Data Nano rce(s) Supporting Document(s) Erythrocytes [#/volume] in Blood by Automated count 4.43 x10*6/UL 4.2 0-6.30 [facility] ([facility]) Leukocytes [#/volume] in Blood by Automated count 8.9 x10*3/UL 4.1-10 .9 [facility] ([facility]) Hemoglobin [Mass/volume] in Blood 13.0 g/dL 12.0-18.0 [facility] ([facility]) Hematocrit [Volume Fraction] of Blood by Automated count 37.5 % 3 7.0-51.0 [facility] ([facility] MCV 84.5 fL 80.0-97.0 [facility] ([facility]) MCH 29.4 pg 26.0-32.0 [facility] ([facility]) MCHC 34.8 g/dL 31.0-38.0 [facility] ([facility]) Erythrocyte distribution width [Ratio] by Automated count 12.6 % 11.6-13.7 [facility] ([facility] MPV 8.3 FL 7.8-11.0 [facility] ([facility]) Platelets [#/volume] in Blood by Automated count 289 x10*3/UL 140-440 [facility] ([facility] Lymph % 26.6 % 10.0-58.5 [facility] ([facility]) Neut % 67.1 % 37.0-92.0 [facility] ([facility]) Mid % 6.3 % 1.7-9.3 [facility] ([facility]) Lymph # 2.3 x10*3/UL 0.6-4.1 [facility] ([facility]) Mid # 0.6 x10*3/UL 0.1-0.6 [facility] ([facility]) Neut # 6.0 x10*3/UL 2.0-7.8 [facility] ([facility]) ID Date Data Source [id number] 12/13/2020 11:35:00 AM EDT [facility] Name Value Range Interpretation Code Description Data Nano rce(s) Supporting Document(s) Glucose [Mass/volume] in Serum or Plasma 120 mg/dL 74-99 [facility] ([facility]) 100-125 mg/dL PRE-DIABETES/FASTING >126 mg/dL DIABETES/FASTING Urea nitrogen [Mass/volume] in Serum or Plasma 28 mg/dL 7-18 [facility] ([facility]) Sodium [Moles/volume] in Serum or Plasma 140 meq/L 136-145 [facility] ([facility]) Creatinine 1.5 mg/dL 0.6-1.3 [facility] Chloride [Moles/volume] in Serum or Plasma 103 meq/L 98-107 [facility] ([facility]) Potassium [Moles/volume] in Serum or Plasma 4.0 meq/L 3.5-5.1 [facility] ([facility]) Calcium [Mass/volume] in Serum or Plasma 8.8 mg/dL 8.5-10.1 [facility] ([facility]) Carbon dioxide, total [Moles/volume] in Serum or Plasma 31 meq/L 21 -32 [facility] ([facility]) Alkaline phosphatase isoenzyme [Units/volume] in Serum or Pl asma 70 mg/dL 46-116 [facility] ([facility]) Total Bilirubin 0.5 mg/dL 0.2-1.0 [facility] ([facility]) Aspartate aminotransferase [Enzymatic activity/volume] in Serum or Plasma 11 U/L 15-37 [facility] ([facility] ) Alanine aminotransferase [Enzymatic activity/volume] in Seru m or Plasma 13 U/L 12-78 [facility] ([facility]) Albumin [Mass/volume] in Serum or Plasma 3.3 g/dL 3.4-5.0 [facility] ([facility]) Proteinase 3 Ab [Units/volume] in Serum 6.6 g/dL 6.4-8.2 [facility] ([facility]) A/G Ratio 1.00 CALC 1.00-1.90 [facility] ([facility]) Glomerular filtration rate/1.73 sq M pre dicted among non-blacks [Volume Rate/Area] in Serum or Plasma by Creatinine-based formula (MDRD) 44 mL/min [facility] ([facility]) Glomerular filtration rate/1.73 sq M pre dicted among blacks [Volume Rate/Area] in Serum or Plasma by Creatinine-based formula (MDRD) 54 mL/min [facility] ([facility]) <content>CHRONIC KIDNEY DISEASE STAGING PER NKF</content>
<content></content>
<content>STAGE I & II GFR >= 60 NORMAL TO MILDLY DECREASED</content>
<content>STAGE III GFR 30-59 MODERATELY DECREASED</content>
<content>STAGE IV GFR 15-29 SEVERELY DECREASED</content>
<content>STAGE V GFR <15 VERY LITTLE GFR LEFT</content>
<content>ESRD GFR <15 ON [facility]</content>
<content></content> ID Date Data Source [id number] 12/13/2020 11:35:00 AM EDT [facility] ([facility]) Name Value Range Interpretation Code Description Data Nano rce(s) Supporting Document(s) Hemoglobin A1c/Hemoglobin.total in Blood Laboratory test result [facility] ([facility]) ID Date Data Source [id number] 06/11/2020 09:10:00 AM EST [facility] ([facility]) Name Value Range Interpretation Code Description Data Nano rce(s) Supporting Document(s) Glucose [Mass/volume] in Serum or Plasma 118 mg/dL 74-99 [facility] ([facility]) 100-125 mg/dL PRE-DIABETES/FASTING >126 mg/dL DIABETES/FASTING Sodium [Moles/volume] in Serum or Plasma 140 meq/L 136-145 [facility] ([facility]) Urea nitrogen [Mass/volume] in Serum or Plasma 29 mg/dL 7-18 [facility] ([facility]) Creatinine 1.5 mg/dL 0.6-1.3 [facility] Carbon dioxide, total [Moles/volume] in Serum or Plasma 30 meq/L 21 -32 [facility] ([facility]) Chloride [Moles/volume] in Serum or Plasma 100 meq/L 98-107 [facility] ([facility]) Potassium [Moles/volume] in Serum or Plasma 3.9 meq/L 3.5-5.1 [facility] ([facility]) Alkaline phosphatase isoenzyme [Units/volume] in Serum or Pl asma 63 mg/dL 46-116 [facility] ([facility]) Calcium [Mass/volume] in Serum or Plasma 9.1 mg/dL 8.5-10.1 [facility] ([facility]) Total Bilirubin 0.6 mg/dL 0.2-1.0 [facility] ([facility]) Alanine aminotransferase [Enzymatic activity/volume] in Seru m or Plasma 18 U/L 12-78 [facility] ([facility]) Aspartate aminotransferase [Enzymatic activity/volume] in Serum or Plasma 12 U/L 15-37 [facility] ([facility] ) Albumin [Mass/volume] in Serum or Plasma 3.6 g/dL 3.4-5.0 [facility] ([facility]) Proteinase 3 Ab [Units/volume] in Serum 6.9 g/dL 6.4-8.2 [facility] ([facility]) Glomerular filtration rate/1.73 sq M pre dicted among non-blacks [Volume Rate/Area] in Serum or Plasma by Creatinine-based formula (MDRD) 44 mL/min [facility] ([facility]) A/G Ratio 1.09 CALC 1.00-1.90 [facility] ([facility]) Glomerular filtration rate/1.73 sq M pre dicted among blacks [Volume Rate/Area] in Serum or Plasma by Creatinine-based formula (MDRD) 54 mL/min [facility] ([facility]) <content>CHRONIC KIDNEY DISEASE STAGING PER NKF</content>
<content></content>
<content>STAGE I & II GFR >= 60 NORMAL TO MILDLY DECREASED</content>
<content>STAGE III GFR 30-59 MODERATELY DECREASED</content>
<content>STAGE IV GFR 15-29 SEVERELY DECREASED</content>
<content>STAGE V GFR <15 VERY LITTLE GFR LEFT</content>
<content>ESRD GFR <15 ON [address]</content>
<content></content> ID Date Data Source [id number] 06/11/2020 09:10:00 AM EST [facility] ([facility]) Name Value Range Interpretation Code Description Data Nano rce(s) Supporting Document(s) Hemoglobin A1c/Hemoglobin.total in Blood 6.3 % [facility] Lab Result Notes: Pre-Diabetes 5.7 - 6.4 % Diabetes = or > 6.5% Glucose mean value [Mass/volume] in Blood Estimated fr om glycated hemoglobin 134 mg/dL 60-110 [facility] ([facility] ) ID Date Data Source [id number] 06/11/2020 09:10:00 AM EST [facility] ([facility]) Name Value Range Interpretation Code Description Data Nano rce(s) Supporting Document(s) Leukocytes [#/volume] in Blood by Automated count 11.4 x10*3/UL 4.1-1 0.9 [facility] ([facility]) NOTE: RESULT VERIFIED. Hemoglobin [Mass/volume] in Blood 13.6 g/dL 12.0-18.0 [facility] ([facility]) Erythrocytes [#/volume] in Blood by Automated count 4.56 x10*6/UL 4.2 0-6.30 [facility] ([facility]) Hematocrit [Volume Fraction] of Blood by Automated count 38.2 % 3 7.0-51.0 [facility] ([facility]) MCHC 35.8 g/dL 31.0-38.0 [facility] ([facility]) MCH 29.9 pg 26.0-32.0 [facility] ([facility]) MCV 83.6 fL 80.0-97.0 [facility] ([facility]) Platelets [#/volume] in Blood by Automated count 326 x10*3/UL 140-440 [facility] ([facility]) Erythrocyte distribution width [Ratio] by Automated count 12.2 % 11.6-13.7 [facility] ([facility]) MPV 8.5 FL 7.8-11.0 [facility] ([facility]) Lymph % 23.7 % 10.0-58.5 [facility] ([facility]) Mid % 5.6 % 1.7-9.3 [facility] ([facility]) Lymph # 2.7 x10*3/UL 0.6-4.1 [facility] ([facility]) Mid # 0.6 x10*3/UL 0.1-0.6 [facility] ([facility]) Neut % 70.7 % 37.0-92.0 [facility]) Neut # 8.1 x10*3/UL 2.0-7.8 [facility] ([facility]) ID Date Data Source [id number] 04/09/2020 09:09:00 AM EDT [facility] ([facility] Name Value Range Interpretation Code Description Data Nano rce(s) Supporting Document(s) Protein [Presence] in Urine by Test strip Laboratory test result [facility] ([facility]) Glucose [Presence] in Urine Laboratory test result [facility] ([facility]) Ua Nitrite Laboratory test result [facility] ([facility]) Blood [Presence] in Urine by Visual Laboratory test result [facility] ([facility]) Ua Leuko Laboratory test result [facility] ([facility]) Clarity of Urine Laboratory test result [facility] ([facility]) Color of Urine Laboratory test result [facility] ([facility]) Ketones [Presence] in Urine by Test strip Laboratory test result [facility] ([facility]) Bilirubin.total [Presence] in Urine by Test strip Laboratory test res ult [facility] ([facility]) Ua Specific [place] Laboratory test result 1.003-1.030 [facility] ([facility]) pH of Urine by Test strip 5.0 5.0-7.5 [facility] ([facility]) Urobilinogen [Mass/volume] in Urine by Test strip 0.2 E.U./dL 0.0-1.0 [facility] ([facility]) ID Date Data Source [id number] 03/28/2020 10:19:00 AM EDT [facility] ([facility]) Name Value Range Interpretation Code Description Data Nano rce(s) Supporting Document(s) Bacteria identified in Urine by Culture Laboratory test result [facility] ([facility]) FULL REPORT IN LAB NOTES (e[facility] and [facility] ). NO GROWTH ID Date Data Source [id number] 03/28/2020 10:18:00 AM EDT [facility] ([facility]) Name Value Range Interpretation Code Description Data Nano rce(s) Supporting Document(s) Urine Color Laboratory test result [facility] ([facility]) Urine PH 6.0 units 5.0-9.0 [facility]) Urine Appearance Laboratory test result [facility] ([facility]) Urine Blood Laboratory test result [facility] ([facility]) Urine Leukocytes Laboratory test result [facility] ([facility]) Specific gravity of Urine 1.020 1.005-1.030 [facility] ([facility]) Glucose [Presence] in Urine Laboratory test result [facility] ([facility]) Urine Protein Laboratory test result 0-0 [facility] ([facility]) Urine Nitrite Laboratory test result [facility] ([facility]) Bilirubin.total [Mass/volume] in Serum or Plasma Laboratory test resu lt [facility] ([facility]) Urine Ketone Laboratory test result [facility] ([facility]) Urine Urobilinogen 0.2 mg/dL 0.2-1.0 [facility] ([facility]) Procedure Social History Code Duration Value Status Description Data Source(s ) Smoking 04/09/2020 12:00:00 AM EDT Former Cigarette Smok er 2 Packs Daily completed Former Cigarette Smoker 2 Packs Daily [facility] Vital Signs ID Date Data Source UNK Name Value Range Interpretation Code Description Data Source(s) Body temperature 97.1 [degF] 97.1 [degF] [facility] ([facility] Body height 67 [in_i] 67 [in_i] [facility] ([facility]) 5'7" Body weight 169.00 [lb_av] 169.00 [lb_av] [facility] T ([facility]) Body mass index (BMI) [Ratio] 26.5 kg/m2 26.5 k g/m2 [facility] ([facility]) Heart rate 78 /min 78 /min [facility] ([facility]) Body height 69 [in_i] 69 [in_i] [facility] ([facility]) 5'9" Body weight 174.00 [lb_av] 174.00 [lb_av] [facility] T ([facility]) Body mass index (BMI) [Ratio] 25.7 kg/m2 25.7 k g/m2 [facility] ([facility]) Systolic blood pressure 122 mm[Hg] 122 mm[Hg] M [facility] ([facility]) Diastolic blood pressure 74 mm[Hg] 74 mm[Hg] [facility] ([facility]) Systolic blood pressure 124 mm[Hg] 124 mm[Hg] [facility] Diastolic blood pressure 72 mm[Hg] 72 mm[Hg] [facility] ([facility]) Heart rate 70 /min 70 /min [facility] ([facility]) Body height 69 [in_i] 69 [in_i] [facility] ([facility]) 5'9" Body weight 176.00 [lb_av] 176.00 [lb_av] [facility] ([facility]) Body mass index (BMI) [Ratio] 26.0 kg/m2 26.0 k g/m2 [facility] ([facility]) Body temperature 97.1 [degF] 97.1 [degF] [facility] ([facility]) Body height 69 [in_i] 69 [in_i] [facility] ([facility]) 5'9" Body weight 182.31 [lb_av] 182.31 [lb_av] [facility] ([facility]) Body mass index (BMI) [Ratio] 26.9 kg/m2 26.9 k g/m2 [facility] ([facility]) Systolic blood pressure 120 mm[Hg] 120 mm[Hg] [facility] ([facility]) Diastolic blood pressure 72 mm[Hg] 72 mm[Hg] [facility] ([facility]) Body height 69 [in_i] 69 [in_i] [facility] ([facility]) 5'9" Body weight 175.00 [lb_av] 175.00 [lb_av] [facility] T ([facility]) Body mass index (BMI) [Ratio] 25.8 kg/m2 25.8 k g/m2 [facility] ([facility])
[2021-05-12 14:06] LABS: BASO # 0.1 10^3/uL (0.0-0.2); BASO % 0.4 % (0.0-1.0); EOS # 0.1 10^3/uL (0.0-0.5); EOS % 0.6 % (0.0-3.0); HEMOGLOBIN 9.3 g/dl (13.5-17.5); LYMPH # 2.4 10^3/uL (1.5-5.0); MEAN CORPUSCULAR HEMOGLOBIN 29.9 pg (27.0-33.0); MEAN CORPUSCULAR HGB CONC 33.2 g/dl (32.0-36.5); MONO % 6.8 % (2.0-8.0); NEUTROPHILS # 10.5 10^3/uL (1.5-8.5); NEUTROPHILS % 74.1 % (36.0-66.0); PLATELET COUNT, AUTOMATED 306 10^3/uL (150-450); RED BLOOD COUNT 3.11 10^6/uL (4.30-6.10); WHITE BLOOD COUNT 14.1 10^3/uL (4.0-10.0)
--- OUTSIDE RECORDS SUMMARY | 2021-05-12 14:07 | CCD ---
Author Author [facility] Organization [facility] Address Unknown Phone Unavailable Care Team Providers Care Used Equipment Sales Representative Name Role Phone Janet BROWN MD Unavailable [...] MADISSOO, Janet FERREIRA MD Unavailable Unavailable [facility], [facility], PA-C Unavailable Unavailabl e Fish, [facility], PA-C Unavailable Unavailabl e Fish, [facility], PA-C Unavailable Unavailabl e Fish, [facility], PA-C Unavailable Unavailabl e Fish, [facility], PA-C Unavailable Unavailabl e Fish, [facility], PA-C Unavailable Unavailabl e Fish, [facility], PA-C Unavailable Unavailabl e Fish, [facility], PA-C Unavailable Unavailabl e Fish, [facility], PA-C Unavailable Unavailabl e Fish, [facility], PA-C Unavailable Unavailabl e Fish, [facility], PA-C Unavailable Unavailabl e Fish, [facility], PA-C Unavailable Unavailabl e Fish, [facility], PA-C Unavailable Unavailabl e Fish, [facility], PA-C Unavailable Unavailabl e Fish, [facility], PA-C Unavailable Unavailabl e Fish, [facility], PA-C Unavailable Unavailabl e Fish, [facility], PA-C Unavailable Unavailabl e Fish, [facility], PA-C Unavailable Unavailabl e Fish, [facility], PA-C Unavailable Unavailabl e Fish, [facility], PA-C Unavailable Unavailabl e Fish, [facility], PA-C Unavailable Unavailabl e Fish, [facility], PA-C Unavailable Unavailabl e Fish, [facility], PA-C Unavailable Unavailabl e Fish, [facility], PA-C Unavailable Unavailabl e Fish, [facility], PA-C Unavailable Unavailabl e Fish, [facility], PA-C Unavailable Unavailabl e Fish, [facility], PA-C Unavailable Unavailabl e Fish, [facility], PA-C Unavailable Unavailabl e Fish, [facility], PA-C Unavailable Unavailabl e Fish, Lea [...] Unavailable Unavailable Edgardo Valenzuela MD Unavailable Unavailable BieberEdgardo canela MD Unavailable Unavailable NicolasEdgardo canela MD Unavailable Unavailable BieberEdgardo canela MD Unavailable Unavailable NicolasEdgardo canela MD Unavailable Unavailable NicolasEdgardo canela MD Unavailable Unavailable BieberEdgardo canela MD Unavailable Unavailable BieberEdgardo canela MD Unavailable Unavailable NicolasEdgardo canela MD Unavailable Unavailable NicolasEdgardo canela MD Unavailable Unavailable BieberEdgardo MD Unavailable Unavailable NicolasEdgardo MD Unavailable Unavailable NicolasEdgardo MD Unavailable Unavailable NicolasEdgardo MD Unavailable Unavailable NicolasEdgardo MD Unavailable Unavailable BieberEdgardo MD Unavailable Unavailable NicolasEdgardo MD Unavailable Unavailable NicolasEdgardo MD Unavailable Unavailable NicolasEdgardo MD Unavailable Unavailable NicolasEdgardo MD Unavailable Unavailable BieberEdgardo MD Unavailable Unavailable BieberEdgardo MD Unavailable Unavailable NicolasEdgardo MD Unavailable Unavailable NicolasEdgardo MD Unavailable Unavailable NicolasEdgardo MD Unavailable Unavailable BieberEdgardo MD Unavailable Unavailable BieberEdgardo MD Unavailable Unavailable BieberEdgardo MD Unavailable Unavailable NicolasEdgardo MD Unavailable Unavailable NicolasEdgardo MD Unavailable Unavailable NicolasEdgardo MD Unavailable Unavailable BieberEdgardo MD Unavailable Unavailable NicolasEdgardo MD Unavailable Unavailable BieberEdgardo MD Unavailable Unavailable NicolasEdgardo MD Unavailable Unavailable NicolasEdgardo MD Unavailable Unavailable BieberEdgardo MD Unavailable Unavailable NicolasEdgardo MD Unavailable Unavailable BieberEdgardo MD Unavailable Unavailable NicolasEdgardo MD Unavailable Unavailable NicolasEdgardo MD Unavailable Unavailable BieberEdgardo MD Unavailable Unavailable NicolasEdgardo MD Unavailable Unavailable NicolasEdgardo MD Unavailable Unavailable NicolasEdgardo canela MD Unavailable Unavailable NicolasEdgardo canela MD Unavailable Unavailable NicolasEdgardo MD Unavailable Unavailable BieberEdgardo MD Unavailable Unavailable NicolasEdgardo canela MD Unavailable Unavailable BieberEdgardo MD Unavailable Unavailable BieberEdgardo canela MD Unavailable Unavailable NicolasEdgardo canela MD Unavailable Unavailable NicolasEdgardo canela MD Unavailable Unavailable BieberEdgardo MD Unavailable Unavailable NicolasEdgardo MD Unavailable Unavailable NicolasEdgardo MD Unavailable Unavailable NicolasEdgardo MD Unavailable Unavailable BieberEdgardo MD Unavailable Unavailable BieberEdgardo MD Unavailable Unavailable NicolasEdgardo MD Unavailable Unavailable BieberEdgardo MD Unavailable Unavailable BieberEdgardo MD Unavailable Unavailable BieberEdgardo MD Unavailable Unavailable BieberEdgardo MD Unavailable Unavailable NicolasEdgardo MD Unavailable Unavailable [...] Unavailable Galdamez, Maddie PA Unavailable Unavailable Galdamez, Amddie PA Unavailable Unavailable Galdamez, Maddie PA Unavailable [...] is protected by Article 27-F of the [place] [facility] Public Health law. If you continue you may have access to information: Regarding HIV / AIDS; Provided by facilities licensed or operated by the [facility] Office of Mental Health; or Provided by the [facility] Office for People With Developmental Disabilities. If such information is present, then the following [facility] mandated warning applies: This information has been [...] law may result in a fine or fpc sentence or both. A general authorization for the release of medical or other information is NOT sufficient authorization for further disc losure. Family History Family Member Name Family Member Gender Family Member Status Date o f Status Description Data Source(s) Unknown Unknown Problem [facility] ([facility]) Unknown Female Problem [facility] ([facility]) Encounters Encounter Providers Location Date Indications Data Source(s ) OFFICE OUTPATIENT VISIT 15 MINUTES Attender: JAC MATTHEWS Physical Therapy 04/30/2021 03:15:00 PM EDT [facility] ([facility]) Office Visit Attender: Arcelia JOSHUA PA-C Physical Therapy 02/26/2021 02:15:00 PM EDT [facility] ([facility]) Office Visit Attender: Arcelia JOSHUA PA-C Physical Therapy 02/19/2021 01:00:00 PM EDT [facility] ([facility]) Office Visit Attender: Arcelia JOSHUA PA-C Physical Therapy 02/05/2021 01:00:00 PM EDT [facility] ([facility]) Office Visit Attender: Maddie MATTHEWS Physical Therapy 12/11 02:00:00 PM EDT [facility] ([facility]) Outpatient Attender: Thiago Wang 0 12/13/2020 11:40:00 AM EDT [facility] ([facility] ) Outpatient Attender: Thiago Wang 1 08/12/2019 07:40:00 AM EST [facility] ([facility] ) Outpatient Attender: HANNA Dillon/ Raymon king 04/09/2020 09:10:00 AM EDT [facility] ([facility]) Outpatient Attender: Alexia Wang 10:15:00 AM EDT [facility] ([facility] ) Immunizations Vaccine Date Status Description Data Source(s) COVID-19 VACCINE Moderna 08/26/2020 12:00:00 AM EST completed [facility] Vaccine Series Complete: YESThis Data wa s Submitted to [facility] [employer]. COVID-19 VACCINE Moderna 07/29/2020 12:00:00 AM EST completed [facility] Vaccine Series Complete: NOThis Data was Submitted to [facility] [employer]. Influenza, injectable, MDCK, preservative free, maria c valent 04/12/2020 09:03:00 AM EDT completed [facility] Influenza, injectable, MDCK, preservative free, maria c valent 04/12/2020 07:50:00 AM EDT completed [facility] ([facility]) Medications Medication Brand Name Start Date Product Form Dose Route Admi nistrative Instructions Pharmacy Instructions Status Indications Reaction Description Data Source(s) 24 HR mirabegron 50 MG Extended Release Oral Tablet [Myrbetr iq] Myrbetriq 10/22/2020 12:00:00 AM EDT ORAL completed [facility] ([facility]) Administration Of Flu Vaccine 04/12/2020 12:00:00 AM EDT completed [facility] Medication administered onsite 24 HR mirabegron 50 MG Extended Release Oral Tablet [Myrbetr iq] Myrbetriq 04/09/2020 12:00:00 AM EDT ORAL active [facility] ([facility] Insurance Providers Payer name Policy type / Coverage type Policy ID Covered republican ID Covered republican's relationship to kyle Policy Kyle Plan Information MEDICARE [id number] SP [id number] Medicare Medigap Part B [id number] Self [id number] MEDICARE [id number] SP [id number] MEDICARE [id number] SP [id number] A Medicare Natl Govt Servic Medicare Primary [id number] Self [id number] Medicare Natl Govt Servic Medicare Primary [id number] Self [id number] Medicare Natl Govt Servic Medicare Primary [id number] Self [id number] Medicare Natl Govt Servic Medicare Primary [id number] Self [id number] Medicare Natl Govt Servic Medicare Primary [id number] Self Medicare Medicare Primary [id number] Self [id number] A [employer] Supplemental Plan Medigap Part B [id number] Self [employer] Healthcare Opt Medigap Part B [id number] Self [id number] MEDICARE C [id number] S [id number] A AARP O [id number] S [id number] AARP HEALTH CARE OPTIONS [id number] SP [id number] MEDICARE C [id number] S [id number] AARP O [id number] S [id number] AARP HEALTH CARE OPTIONS [id number] SP [id number] [employer] Supplemental Plan Medigap Part B [id number] Self [id number] Medicare Medicare Primary [id number] Self [id number] [employer] Healthcare Opt Medigap Part B [id number] Self A[employer] Health Care Medigap Part B [id number] Self [employer] Health Care Options Medigap Part B [id number] Self [id number] Medicare [place] Primary [id number] Self 1 [id number] Problems, Conditions, and Diagnoses Code Display Name Description Problem Type Effective Dates Data Source(s) [id number] Overactive bladder Overactive bladder Problem 12:00:00 AM EDT [facility] ([facility]) Surgeries/Procedures Procedure Description Date Indications Data Source(s) ARTHROCENTESIS ASPIR&/INJECTION MAJOR JT/BURSA 021 12:00:00 AM EDT [facility] ([facility]) X-Ray Hip Unilateral With Pelvis 2-3 Views 04/30/2021 12:00:00 AM EDT [facility] ([facility]) OFFICE OUTPATIENT VISIT 15 MINUTES 04/30/2021 12:00:00 AM EDT [facility] ([facility]) ARTHROCENTESIS ASPIR&/INJECTION MAJOR JT/BURSA 021 12:00:00 AM EDT [facility] ([facility]) ARTHROCENTESIS ASPIR&/INJECTION MAJOR JT/BURSA 021 12:00:00 AM EDT [facility] ([facility]) ARTHROCENTESIS ASPIR&/INJECTION MAJOR JT/BURSA 021 12:00:00 AM EDT [facility] ([facility]) ARTHROCENTESIS ASPIR&/INJECTION MAJOR JT/BURSA 021 12:00:00 AM EDT [facility] ([facility]) OFFICE OUTPATIENT VISIT 25 MINUTES 12/13/2020 12:00:00 AM EDT [facility] ([facility]) ECG ROUTINE ECG W/LEAST 12 LDS W/I&R 06/11/2020 12:00: 00 AM EST [facility] ([facility]) Colonoscopy 04/09/2020 12:00:00 AM EDT M [facility]ENT ([facility]) ALEKSANDAR POST-VOIDING RESIDUAL URINE&/BLDR CAP 04/09/2020 12:00:00 AM EDT [facility] ([facility]) ARTHROCENTESIS ASPIR&/INJECTION MAJOR JT/BURSA 020 12:00:00 AM EDT [facility] ([facility]) Results ID Date Data Source [id number] 12/13/2020 11:35:00 AM EDT [facility] ([facility]) Name Value Range Interpretation Code Description Data Nano rce(s) Supporting Document(s) Triglyceride [Mass/volume] in Serum or Plasma 125 mg/dL 30-150 [facility] ([facility]) Cholesterol [Mass/volume] in Serum or Plasma 212 mg/dL 131-200 [facility] ([facility]) Cholesterol in LDL [Mass/volume] in Serum or Plasma by calcu lation 145 CALC 50-159 [facility]) Cholesterol in HDL [Mass/volume] in Serum or Plasma 42 mg/dL 35-60 [facility] ([facility]) ID Date Data Source [id number] 12/13/2020 11:35:00 AM EDT [facility] ([facility]) Name Value Range Interpretation Code Description Data Nano rce(s) Supporting Document(s) Hemoglobin A1c/Hemoglobin.total in Blood 6.4 % [facility] ([facility]) Lab Result Notes: Pre-Diabetes 5.7 - 6.4 % Diabetes = or > 6.5% Glucose mean value [Mass/volume] in Blood Estimated fr om glycated hemoglobin 137 mg/dL 60-110 [facility] ([facility] ) ID Date Data Source [id number] 12/13/2020 11:35:00 AM EDT [facility] ([facility]) Name Value Range Interpretation Code Description Data Nano rce(s) Supporting Document(s) Erythrocytes [#/volume] in Blood by Automated count 4.43 x10*6/UL 4.2 0-6.30 [facility] ([facility]) Leukocytes [#/volume] in Blood by Automated count 8.9 x10*3/UL 4.1-10 .9 [facility] ([facility]) Hemoglobin [Mass/volume] in Blood 13.0 g/dL 12.0-18.0 [facility] Hematocrit [Volume Fraction] of Blood by Automated count 37.5 % 3 7.0-51.0 [facility] ([facility]) MCV 84.5 fL 80.0-97.0 [facility] ([facility]) MCH 29.4 pg 26.0-32.0 [facility] ([facility]) MCHC 34.8 g/dL 31.0-38.0 [facility] ([facility]) Platelets [#/volume] in Blood by Automated count 289 x10*3/UL 140-440 [facility] Erythrocyte distribution width [Ratio] by Automated count 12.6 % 11.6-13.7 [facility] ([facility]) MPV 8.3 FL 7.8-11.0 [facility] ([facility]) Lymph % 26.6 % 10.0-58.5 [facility] ([facility]) Lymph # 2.3 x10*3/UL 0.6-4.1 [facility] ([facility]) Neut % 67.1 % 37.0-92.0 [facility] ([facility]) Mid % 6.3 % 1.7-9.3 [facility]) Neut # 6.0 x10*3/UL 2.0-7.8 [facility] ([facility]) Mid # 0.6 x10*3/UL 0.1-0.6 [facility] ([facility]) ID Date Data Source [id number] 12/13/2020 11:35:00 AM EDT [facility] ([facility]) Name Value Range Interpretation Code Description Data Nano rce(s) Supporting Document(s) Urea nitrogen [Mass/volume] in Serum or Plasma 28 mg/dL 7-18 [facility] ([facility]) Glucose [Mass/volume] in Serum or Plasma 120 mg/dL 74-99 [facility] ([facility]) 100-125 mg/dL PRE-DIABETES/FASTING >126 mg/dL DIABETES/FASTING Creatinine 1.5 mg/dL 0.6-1.3 [facility] ([facility]) Sodium [Moles/volume] in Serum or Plasma 140 meq/L 136-145 [facility] ([facility]) Potassium [Moles/volume] in Serum or Plasma 4.0 meq/L 3.5-5.1 [facility] ([facility]) Chloride [Moles/volume] in Serum or Plasma 103 meq/L 98-107 [facility] ([facility]) Carbon dioxide, total [Moles/volume] in Serum or Plasma 31 meq/L 21 -32 [facility] ([facility]) Calcium [Mass/volume] in Serum or Plasma 8.8 mg/dL 8.5-10.1 [facility] ([facility]) Alkaline phosphatase isoenzyme [Units/volume] in Serum or Pl asma 70 mg/dL 46-116 [facility] Total Bilirubin 0.5 mg/dL 0.2-1.0 [facility] ([facility]) Aspartate aminotransferase [Enzymatic activity/volume] in Serum or Plasma 11 U/L 15-37 [facility] ([facility] ) Alanine aminotransferase [Enzymatic activity/volume] in Seru m or Plasma 13 U/L 12-78 [facility] ([facility]) Albumin [Mass/volume] in Serum or Plasma 3.3 g/dL 3.4-5.0 [facility] ([facility]) Proteinase 3 Ab [Units/volume] in Serum 6.6 g/dL 6.4-8.2 [facility] ([facility]) A/G Ratio 1.00 CALC 1.00-1.90 [facility]) Glomerular filtration rate/1.73 sq M pre dicted among non-blacks [Volume Rate/Area] in Serum or Plasma by Creatinine-based formula (MDRD) 44 mL/min [facility] ([facility]) Glomerular filtration rate/1.73 sq M pre dicted among blacks [Volume Rate/Area] in Serum or Plasma by Creatinine-based formula (MDRD) 54 mL/min [facility] <content>CHRONIC KIDNEY DISEASE STAGING PER NKF</content>
<content></content>
<content>STAGE I & II GFR >= 60 NORMAL TO MILDLY DECREASED</content>
<content>STAGE III GFR 30-59 MODERATELY DECREASED</content>
<content>STAGE IV GFR 15-29 SEVERELY DECREASED</content>
<content>STAGE V GFR <15 VERY LITTLE GFR LEFT</content>
<content>ESRD GFR <15 ON [employer]</content>
<content></content> ID Date Data Source [id number] 12/13/2020 11:35:00 AM EDT [facility] ([facility]) Name Value Range Interpretation Code Description Data Nano rce(s) Supporting Document(s) Hemoglobin A1c/Hemoglobin.total in Blood Laboratory test result [facility] ([facility]) ID Date Data Source [id number] 06/11/2020 09:10:00 AM EST [facility] ([facility]) Name Value Range Interpretation Code Description Data Nano rce(s) Supporting Document(s) Glucose [Mass/volume] in Serum or Plasma 118 mg/dL 74-99 [facility] ([facility]) 100-125 mg/dL PRE-DIABETES/FASTING >126 mg/dL DIABETES/FASTING Sodium [Moles/volume] in Serum or Plasma 140 meq/L 136-145 [facility] ([facility]) Urea nitrogen [Mass/volume] in Serum or Plasma 29 mg/dL 7-18 [facility] ([facility]) Creatinine 1.5 mg/dL 0.6-1.3 [facility] Carbon dioxide, total [Moles/volume] in Serum or Plasma 30 meq/L 21 -32 [facility] ([facility]) Chloride [Moles/volume] in Serum or Plasma 100 meq/L 98-107 [facility] ([facility]) Potassium [Moles/volume] in Serum or Plasma 3.9 meq/L 3.5-5.1 [facility] ([facility]) Alkaline phosphatase isoenzyme [Units/volume] in Serum or Pl asma 63 mg/dL 46-116 [facility] ([facility]) Calcium [Mass/volume] in Serum or Plasma 9.1 mg/dL 8.5-10.1 [facility] ([facility]) Total Bilirubin 0.6 mg/dL 0.2-1.0 [facility] ([facility]) Alanine aminotransferase [Enzymatic activity/volume] in Seru m or Plasma 18 U/L 12-78 [facility] ([facility]) Aspartate aminotransferase [Enzymatic activity/volume] in Serum or Plasma 12 U/L 15-37 [facility] ([facility] ) Albumin [Mass/volume] in Serum or Plasma 3.6 g/dL 3.4-5.0 [facility] ([facility]) Proteinase 3 Ab [Units/volume] in Serum 6.9 g/dL 6.4-8.2 [facility] ([facility]) Glomerular filtration rate/1.73 sq M pre dicted among non-blacks [Volume Rate/Area] in Serum or Plasma by Creatinine-based formula (MDRD) 44 mL/min [facility] A/G Ratio 1.09 CALC 1.00-1.90 [facility] ([facility]) Glomerular filtration rate/1.73 sq M pre dicted among blacks [Volume Rate/Area] in Serum or Plasma by Creatinine-based formula (MDRD) 54 mL/min [facility] <content>CHRONIC KIDNEY DISEASE STAGING PER NKF</content>
<content></content>
<content>STAGE I & II GFR >= 60 NORMAL TO MILDLY DECREASED</content>
<content>STAGE III GFR 30-59 MODERATELY DECREASED</content>
<content>STAGE IV GFR 15-29 SEVERELY DECREASED</content>
<content>STAGE V GFR <15 VERY LITTLE GFR LEFT</content>
<content>ESRD GFR <15 ON [employer]</content>
<content></content> ID Date Data Source [id number] 06/11/2020 09:10:00 AM EST [facility] ([facility]) Name Value Range Interpretation Code Description Data Nano rce(s) Supporting Document(s) Hemoglobin A1c/Hemoglobin.total in Blood 6.3 % [facility] Lab Result Notes: Pre-Diabetes 5.7 - 6.4 % Diabetes = or > 6.5% Glucose mean value [Mass/volume] in Blood Estimated fr om glycated hemoglobin 134 mg/dL 60-110 [facility] ([facility] ) ID Date Data Source [id number] 06/11/2020 09:10:00 AM EST [facility] ([facility]) Name Value Range Interpretation Code Description Data Nano rce(s) Supporting Document(s) Leukocytes [#/volume] in Blood by Automated count 11.4 x10*3/UL 4.1-1 0.9 [facility] ([facility]) NOTE: RESULT VERIFIED. Hemoglobin [Mass/volume] in Blood 13.6 g/dL 12.0-18.0 [facility] Erythrocytes [#/volume] in Blood by Automated count 4.56 x10*6/UL 4.2 0-6.30 [facility] Hematocrit [Volume Fraction] of Blood by Automated count 38.2 % 3 7.0-51.0 [facility] ([facility]) MCHC 35.8 g/dL 31.0-38.0 [facility]) MCH 29.9 pg 26.0-32.0 [facility] ([facility]) MCV 83.6 fL 80.0-97.0 [facility] ([facility]) Platelets [#/volume] in Blood by Automated count 326 x10*3/UL 140-440 [facility] Erythrocyte distribution width [Ratio] by Automated count 12.2 % 11.6-13.7 [facility] ([facility]) MPV 8.5 FL 7.8-11.0 [facility]) Lymph % 23.7 % 10.0-58.5 [facility] ([facility]) Mid % 5.6 % 1.7-9.3 [facility] ([facility]) Lymph # 2.7 x10*3/UL 0.6-4.1 [facility] ([facility]) Mid # 0.6 x10*3/UL 0.1-0.6 [facility] ([facility]) Neut % 70.7 % 37.0-92.0 [facility] Neut # 8.1 x10*3/UL 2.0-7.8 [facility] ([facility]) ID Date Data Source [id number] 04/09/2020 09:09:00 AM EDT [facility] ([facility] Name Value Range Interpretation Code Description Data Nano rce(s) Supporting Document(s) Protein [Presence] in Urine by Test strip Laboratory test result [facility] ([facility]) Glucose [Presence] in Urine Laboratory test result [facility] ([facility]) Ua Nitrite Laboratory test result [facility] ([facility]) Blood [Presence] in Urine by Visual Laboratory test result [facility] ([facility]) Ua Leuko Laboratory test result [facility] ([facility]) Clarity of Urine Laboratory test result [facility] ([facility]) Color of Urine Laboratory test result [facility] ([facility]) Ketones [Presence] in Urine by Test strip Laboratory test result [facility] ([facility]) Bilirubin.total [Presence] in Urine by Test strip Laboratory test res ult [facility] ([facility]) Ua Specific [place] Laboratory test result 1.003-1.030 [facility] ([facility]) pH of Urine by Test strip 5.0 5.0-7.5 [facility] ([facility]) Urobilinogen [Mass/volume] in Urine by Test strip 0.2 E.U./dL 0.0-1.0 [facility] ([facility]) ID Date Data Source [id number] 03/28/2020 10:19:00 AM EDT [facility] ([facility]) Name Value Range Interpretation Code Description Data Nano rce(s) Supporting Document(s) Bacteria identified in Urine by Culture Laboratory test result [facility] ([facility]) FULL REPORT IN LAB NOTES (e[facility] and [facility] ). NO GROWTH ID Date Data Source [id number] 03/28/2020 10:18:00 AM EDT [facility] ([facility]) Name Value Range Interpretation Code Description Data Nano rce(s) Supporting Document(s) Urine Color Laboratory test result [facility] ([facility]) Urine PH 6.0 units 5.0-9.0 [facility]) Urine Appearance Laboratory test result [facility] ([facility]) Urine Blood Laboratory test result MEDEN T ([facility]) Urine Leukocytes Laboratory test result MEDENT ([facility]) Specific gravity of Urine 1.020 1.005-1.030 [place] DENT ([facility]) Glucose [Presence] in Urine Laboratory test result MEDENT ([facility]) Urine Protein Laboratory test result 0-0 MED ENT ([facility]) Urine Nitrite Laboratory test result MED ENT ([facility]) Bilirubin.total [Mass/volume] in Serum or Plasma Laboratory test resu lt MEDENT ([facility]) Urine Ketone Laboratory test result MEDE NT ([facility]) Urine Urobilinogen 0.2 mg/dL 0.2-1.0 [facility] ([facility]) Procedure Social History Code Duration Value Status Description Data Source(s ) Smoking 04/09/2020 12:00:00 AM EDT Former Cigarette Smok er 2 Packs Daily completed Former Cigarette Smoker 2 Packs Daily [facility] ([facility] [place]) Vital Signs ID Date Data Source UNK Name Value Range Interpretation Code Description Data Source(s) Systolic blood pressure 96 mm[Hg] 96 mm[Hg] M EDENT ([facility]) Diastolic blood pressure 50 mm[Hg] 50 mm[Hg] MEDENT ([facility]) Heart rate 80 /min 80 /min [facility] ([facility]) Body height 69 [in_i] 69 [in_i] [facility] ([facility]) 5'9" Body weight 169.00 [lb_av] 169.00 [lb_av] MEDEN T ([facility]) Oxygen saturation in Arterial blood by Pulse oximetry 96 % 96 % MEDENT ([facility]) Body mass index (BMI) [Ratio] 25.0 kg/m2 25.0 k g/m2 MED[facility] ([facility]) Body mass index (BMI) [Ratio] 26.5 kg/m2 26.5 k g/m2 [facility] ([facility] ) Body temperature 97.1 [degF] 97.1 [degF] [facility] ([facility] ) Body height 67 [in_i] 67 [in_i] [facility] ([facility] ) 5'7" Body weight 169.00 [lb_av] 169.00 [lb_av] MEDEN T ([facility] ) Systolic blood pressure 122 mm[Hg] 122 mm[Hg] M EDENT ([facility]) Diastolic blood pressure 74 mm[Hg] 74 mm[Hg] MEDENT ([facility]) Heart rate 78 /min 78 /min [facility] ([facility]) Body height 69 [in_i] 69 [in_i] [facility] ([facility]) 5'9" Body weight 174.00 [lb_av] 174.00 [lb_av] MEDEN T ([facility]) Body mass index (BMI) [Ratio] 25.7 kg/m2 25.7 k g/m2 [facility] ([facility]) Systolic blood pressure 124 mm[Hg] 124 mm[Hg] M EDENT ([facility]) Diastolic blood pressure 72 mm[Hg] 72 mm[Hg] MEDENT ([facility]) Heart rate 70 /min 70 /min [facility] ([facility]) Body height 69 [in_i] 69 [in_i] MED[facility] ([facility]) 5'9" Body weight 176.00 [lb_av] 176.00 [lb_av] MEDEN T ([facility]) Body mass index (BMI) [Ratio] 26.0 kg/m2 26.0 k g/m2 MED[facility] ([facility]) Body temperature 97.1 [degF] 97.1 [degF] [facility] ([facility] ) Body height 69 [in_i] 69 [in_i] MED[facility] ([facility] ) 5'9" Body weight 182.31 [lb_av] 182.31 [lb_av] MEDEN T ([facility] ) Body mass index (BMI) [Ratio] 26.9 kg/m2 26.9 k g/m2 [facility] ([facility] ) Systolic blood pressure 120 mm[Hg] 120 mm[Hg] M EDENT ([facility]) Diastolic blood pressure 72 mm[Hg] 72 mm[Hg] MEDENT ([facility]) Body height 69 [in_i] 69 [in_i] OCTAVIO ([facility]) 5'9" Body weight 175.00 [lb_av] 175.00 [lb_av] CRICKET Martinez ([facility]) Body mass index (BMI) [Ratio] 25.8 kg/m2 25.8 k g/m2 OCTAVIO ([facility])
[2021-05-12 14:25] LABS: INR 1.04; PROTHROMBIN TIME 14.1 SECONDS (12.7-14.5)
[2021-05-12 14:26] LABS: PARTIAL THROMBOPLASTIN TIME 26.8 SECONDS (25.9-37.0)
[2021-05-12 14:37] LABS: ALT/SGPT 16 U/L (12-78); BILIRUBIN,DIRECT < 0.1 MG/DL (0.0-0.2); BILIRUBIN,TOTAL 0.3 MG/DL (0.2-1.0); BLOOD UREA NITROGEN 45 MG/DL (7-18); CALCIUM LEVEL 8.8 MG/DL (8.8-10.2); CARBON DIOXIDE LEVEL 25 MEQ/L (21-32); CHLORIDE LEVEL 108 MEQ/L (98-107); CREATININE FOR GFR 1.79 MG/DL (0.70-1.30); GLOMERULAR FILTRATION RATE 38.5 (>35); GLUCOSE, FASTING 133 MG/DL (70-100); LIPASE 138 U/L (73-393); POTASSIUM SERUM 3.7 MEQ/L (3.5-5.1); SODIUM LEVEL 141 MEQ/L (136-145); TOTAL PROTEIN 6.1 GM/DL (6.4-8.2)
[2021-05-12] MEDS ORDERED: AVOD0.5C PO (14:56)
[2021-05-12] MEDS ORDERED: DORZ2SOL5 OS (14:56)
[2021-05-12] MEDS ORDERED: D3 U5000 PO (14:58)
[2021-05-12] MEDS ORDERED: MULT-90 PO (14:58)
[2021-05-12] MEDS ORDERED: HOME MED LIST COMPLETE! XX SCH (15:00)
[2021-05-12] MEDS ORDERED: IBUP200C25 PO (15:00)
--- NOTE | 2021-05-12 15:00 | REP ---
INDICATION: pre-op. COMPARISON: 05/14/2017 the latest prior TECHNIQUE: Portable FINDINGS: The technique utilized in obtaining the radiograph has magnified the cardiac silhouette and attenuated the interstitial markings. A few left basilar opacities have developed since the last exam. The pleural angles are sharp and the heart is not enlarged. Lung yoon are otherwise clear. The osseous structures are within normal limits. IMPRESSION: Left basilar opacities have developed since the last exam. Subsegmental atelectatic change and/or fibrotic change or even possible early pneumonia. <Electronically signed by Neo Pollock > 05/12/21 [id number]
[2021-05-12] MEDS: NS 1,000 ML IV SCH ×2 (15:03→20:43)
[2021-05-12] MEDS ORDERED: ACETAMINOPHEN TAB 650MG DOSE (2X325MG) PO PRN (15:45)
[2021-05-12 16:00] LABS: RSV AMPLIFICATION NEGATIVE (NEGATIVE)
--- OUTSIDE RECORDS SUMMARY | 2021-05-12 16:21 | CCD ---
Author Author [facility] Organization [facility] Address Unknown Phone Unavailable Care Team Providers Care Animal Care Assistant Name Role Phone Janet BROWN MD Unavailable [...] MD Unavailable Unavailable MADDEDRICKOOJanet MD Unavailable Unavailable MADDERDICKOOJanet MD Unavailable Unavailable MADDEDRICKOOJanet MD Unavailable Unavailable [...] MADISSOO, Janet FERREIRA MD Unavailable Unavailable Fish, [facility], PA-C Unavailable Unavailabl e Fish, [facility], PA-C Unavailable Unavailabl e Fish, [facility], PA-C Unavailable Unavailabl e Fish, [facility], PA-C Unavailable Unavailabl e Fish, [facility], PA-C Unavailable Unavailabl e Fish, [facility], PA-C Unavailable Unavailabl e Fish, [facility], PA-C Unavailable Unavailabl e Fish, [facility], PA-C Unavailable Unavailabl e Fish, [facility], PA-C Unavailable Unavailabl e Fish, [facility], PA-C Unavailable Unavailabl e Fish, [facility], PA-C Unavailable Unavailabl e Fish, [facility], PA-C Unavailable Unavailabl e Fish, [facility], PA-C Unavailable Unavailabl e Fish, [facility], PA-C Unavailable Unavailabl e Fish, [facility], PA-C Unavailable Unavailabl e Fish, [facility], PA-C Unavailable Unavailabl e Fish, [facility], PA-C Unavailable Unavailabl e Fish, [facility], PA-C Unavailable Unavailabl e Fish, [facility], PA-C Unavailable Unavailabl e Fish, [facility], PA-C Unavailable Unavailabl e Fish, [facility], PA-C Unavailable Unavailabl e Fish, [facility], PA-C Unavailable Unavailabl e Fish, [facility], PA-C Unavailable Unavailabl e Fish, [facility], PA-C Unavailable Unavailabl e Fish, [facility], PA-C Unavailable Unavailabl e Fish, [facility], PA-C Unavailable Unavailabl e Fish, [facility], PA-C Unavailable Unavailabl e Fish, [facility], PA-C Unavailable Unavailabl e Fish, [facility], PA-C Unavailable Unavailabl e Fish, Lea [...] Unavailable Unavailable Edgardo Valenzuela MD Unavailable Unavailable AlbionEdgardo canela MD Unavailable Unavailable NicolasEdgardo canela MD Unavailable Unavailable AlbionEdgardo canela MD Unavailable Unavailable NicolasEdgardo canela MD Unavailable Unavailable NicolasEdgardo canela MD Unavailable Unavailable AlbionEdgardo canela MD Unavailable Unavailable AlbionEdgardo canela MD Unavailable Unavailable NicolasEdgardo canela MD Unavailable Unavailable NicolasEdgardo canela MD Unavailable Unavailable AlbionEdgardo MD Unavailable Unavailable NicolasEdgardo MD Unavailable Unavailable NicolasEdgardo MD Unavailable Unavailable NicolasEdgardo MD Unavailable Unavailable NicolasEdgardo MD Unavailable Unavailable AlbionEdgardo MD Unavailable Unavailable NicolasEdgardo MD Unavailable Unavailable NicolasEdgardo MD Unavailable Unavailable NicolasEdgardo MD Unavailable Unavailable NicolasEdgardo MD Unavailable Unavailable AlbionEdgardo MD Unavailable Unavailable AlbionEdgardo MD Unavailable Unavailable NicolasEdgardo MD Unavailable Unavailable NicolasEdgardo MD Unavailable Unavailable NicolasEdgardo MD Unavailable Unavailable AlbionEdgardo MD Unavailable Unavailable AlbionEdgardo MD Unavailable Unavailable AlbionEdgardo MD Unavailable Unavailable NicolasEdgardo MD Unavailable Unavailable NicolasEdgardo MD Unavailable Unavailable NicolasEdgardo MD Unavailable Unavailable AlbionEdgardo MD Unavailable Unavailable NicolasEdgardo MD Unavailable Unavailable AlbionEdgardo MD Unavailable Unavailable NicolasEdgardo MD Unavailable Unavailable NicloasEdgardo MD Unavailable Unavailable AlbionEdgardo MD Unavailable Unavailable NicolasEdgardo MD Unavailable Unavailable AlbionEdgardo MD Unavailable Unavailable NicolasEdgardo MD Unavailable Unavailable NicolasEdgardo MD Unavailable Unavailable AlbionEdgardo MD Unavailable Unavailable NicolasEdgardo MD Unavailable Unavailable NicolasEdgardo MD Unavailable Unavailable NicolasEdgardo canela MD Unavailable Unavailable NicolasEdgardo canela MD Unavailable Unavailable NicolasEdgardo MD Unavailable Unavailable AlbionEdgardo MD Unavailable Unavailable NicolasEdgardo canela MD Unavailable Unavailable AlbionEdgardo MD Unavailable Unavailable AlbionEdgardo canela MD Unavailable Unavailable NicolasEdgardo canela MD Unavailable Unavailable NicolasEdgardo canela MD Unavailable Unavailable AlbionEdgardo MD Unavailable Unavailable NicolasEdgardo MD Unavailable Unavailable NicolasEdgardo MD Unavailable Unavailable NicolasEdgardo MD Unavailable Unavailable AlbionEdgardo MD Unavailable Unavailable AlbionEdgardo MD Unavailable Unavailable NicolasEdgardo MD Unavailable Unavailable AlbionEdgardo MD Unavailable Unavailable AlbionEdgardo MD Unavailable Unavailable AlbionEdgardo MD Unavailable Unavailable AlbionEdgardo MD Unavailable Unavailable NicolasEdgardo MD Unavailable Unavailable [...] Unavailable Unavailable Galdamez, Maddie PA Unavailable Unavailable Galdaemz, Maddie PA Unavailable Unavailable Galdamez, Maddie PA Unavailable Unavailable Galdmaez, Maddie PA Unavailable Unavailable Galdamez, Maddie PA [...] is protected by Article 27-F of the [facility] Public Health law. If you continue you may have access to information: Regarding HIV / AIDS; Provided by facilities licensed or operated by the [facility] Office of Mental Health; or Provided by the [facility] Office for People With Developmental Disabilities. If such information is present, then the following [facility] mandated warning applies: This information has [...] law may result in a fine or fci sentence or both. A general authorization for the release of medical or other information is NOT sufficient authorization for further disc losure. Family History Family Member Name Family Member Gender Family Member Status Date o f Status Description Data Source(s) Unknown Unknown Problem [facility] ([facility]) Unknown Female Problem [facility] ([facility]) Encounters Encounter Providers Location Date Indications Data Source(s ) OFFICE OUTPATIENT VISIT 15 MINUTES Attender: JAC MATTHEWS Physical Therapy 04/30/2021 03:15:00 PM EDT [facility] ([facility]) Office Visit Attender: Arcelia JOSHUA PA-C Physical Therapy 02/26/2021 02:15:00 PM EDT [facility] ([facility]) Office Visit Attender: Arcelia JOSHUA PA-C Physical Therapy 02/19/2021 01:00:00 PM EDT [facility] ([facility]) Office Visit Attender: Arcelia JOSHUA PA-C Physical Therapy 02/05/2021 01:00:00 PM EDT [facility] ([facility]) Office Visit Attender: Maddie MATTHEWS Physical Therapy 12/11 02:00:00 PM EDT [facility] ([facility]) Outpatient Attender: Thiago Wang 0 12/13/2020 11:40:00 AM EDT [facility] ([facility] ) Outpatient Attender: Thiago Wang 1 08/12/2019 07:40:00 AM EST [facility] ([facility] ) Outpatient Attender: HANNA Dillon/ Raymon king 04/09/2020 09:10:00 AM EDT [facility] ([facility]) Outpatient Attender: Alexia Wang 10:15:00 AM EDT [facility] ([facility] ) Immunizations Vaccine Date Status Description Data Source(s) COVID-19 VACCINE Moderna 08/26/2020 12:00:00 AM EST completed [facility] Vaccine Series Complete: YESThis Data wa s Submitted to [facility] Via [facility]. COVID-19 VACCINE Moderna 07/29/2020 12:00:00 AM EST completed [facility] Vaccine Series Complete: NOThis Data was Submitted to [facility] Via [employer]. Influenza, injectable, MDCK, preservative free, maria c valent 04/12/2020 09:03:00 AM EDT completed [facility] Influenza, injectable, MDCK, preservative free, maria c valent 04/12/2020 07:50:00 AM EDT completed [facility] ([facility]) Medications Medication Brand Name Start Date Product Form Dose Route Admi nistrative Instructions Pharmacy Instructions Status Indications Reaction Description Data Source(s) 24 HR mirabegron 50 MG Extended Release Oral Tablet [Myrbetr iq] Myrbetriq 10/22/2020 12:00:00 AM EDT ORAL completed [facility] ([facility]) Administration Of Flu Vaccine 04/12/2020 12:00:00 AM EDT completed [facility] Medication administered onsite 24 HR mirabegron 50 MG Extended Release Oral Tablet [Myrbetr iq] Myrbetriq 04/09/2020 12:00:00 AM EDT ORAL active [facility] ([facility]) Insurance Providers Payer name Policy type / Coverage type Policy ID Covered alliance party ID Covered alliance party's relationship to kyle Policy Kyle Plan Information MEDICARE [id number] SP [id number] Medicare Medigap Part B [id number] Self [id number] MEDICARE [id number] SP [id number] MEDICARE [id number] SP [id number] A Medicare Natl Govt Servic Medicare Primary [id number] Self [id number] Medicare Natl Govt Servic Medicare Primary [id number] Self [id number] Medicare Natl Govt Servic Medicare Primary [id number] Self [id number] Medicare Natl Govt Servic Medicare Primary [id number] Self [id number] Medicare Natl Govt Servic Medicare Primary [id number] Self Medicare Medicare Primary [id number] Self [id number] A [employer] Supplemental Plan Medigap Part B [id number] Self A[employer] Healthcare Opt Medigap Part B [id number] Self [id number] MEDICARE C [id number] S [id number] A AARP O [id number] S [id number] AARP HEALTH CARE OPTIONS [id number] SP [id number] MEDICARE C [id number] S [id number] AARP O [id number] S [id number] 411 AARP HEALTH CARE OPTIONS [id number] SP [id number] Aarp Supplemental Plan Medigap Part B [id number] Self [id number] Medicare Medicare Primary [id number] Self [id number] Aarp Healthcare Opt Medigap Part B [id number] Self A[employer] Health Care Medigap Part B [id number] Self A[employer] Health Care Options Medigap Part B [id number] Self 2 [id number] Medicare [place] Medicare Primary [id number] Self 1 [id number] Problems, Conditions, and Diagnoses Code Display Name Description Problem Type Effective Dates Data Source(s) [id number] Overactive bladder Overactive bladder Problem 12:00:00 AM EDT [facility] ([facility]) Surgeries/Procedures Procedure Description Date Indications Data Source(s) ARTHROCENTESIS ASPIR&/INJECTION MAJOR JT/BURSA 021 12:00:00 AM EDT [facility] ([facility]) X-Ray Hip Unilateral With Pelvis 2-3 Views 04/30/2021 12:00:00 AM EDT [facility] ([facility]) OFFICE OUTPATIENT VISIT 15 MINUTES 04/30/2021 12:00:00 AM EDT [facility] ([facility]) ARTHROCENTESIS ASPIR&/INJECTION MAJOR JT/BURSA 021 12:00:00 AM EDT [facility] ([facility]) ARTHROCENTESIS ASPIR&/INJECTION MAJOR JT/BURSA 021 12:00:00 AM EDT [facility] ([facility]) ARTHROCENTESIS ASPIR&/INJECTION MAJOR JT/BURSA 021 12:00:00 AM EDT [facility] ([facility]) ARTHROCENTESIS ASPIR&/INJECTION MAJOR JT/BURSA 021 12:00:00 AM EDT [facility] ([facility]) OFFICE OUTPATIENT VISIT 25 MINUTES 12/13/2020 12:00:00 AM EDT [facility] ([facility]) ECG ROUTINE ECG W/LEAST 12 LDS W/I&R 06/11/2020 12:00: 00 AM EST [facility] ([facility]) Colonoscopy 04/09/2020 12:00:00 AM EDT M EDENT ([facility]) ALEKSANDAR POST-VOIDING RESIDUAL URINE&/BLDR CAP 04/09/2020 12:00:00 AM EDT [facility] ([facility]) ARTHROCENTESIS ASPIR&/INJECTION MAJOR JT/BURSA 020 12:00:00 AM EDT [facility] ([facility]) Results ID Date Data Source [id number] 12/13/2020 11:35:00 AM EDT [facility] ([facility]) Name Value Range Interpretation Code Description Data Nano rce(s) Supporting Document(s) Triglyceride [Mass/volume] in Serum or Plasma 125 mg/dL 30-150 [facility] ([facility]) Cholesterol [Mass/volume] in Serum or Plasma 212 mg/dL 131-200 [facility] ([facility]) Cholesterol in LDL [Mass/volume] in Serum or Plasma by calcu lation 145 CALC 50-159 [facility] ([facility]) Cholesterol in HDL [Mass/volume] in Serum or Plasma 42 mg/dL 35-60 [facility] ([facility]) ID Date Data Source [id number] 12/13/2020 11:35:00 AM EDT [facility] ([facility]) Name Value Range Interpretation Code Description Data Nano rce(s) Supporting Document(s) Hemoglobin A1c/Hemoglobin.total in Blood 6.4 % [facility] ([facility]) Lab Result Notes: Pre-Diabetes 5.7 - 6.4 % Diabetes = or > 6.5% Glucose mean value [Mass/volume] in Blood Estimated fr om glycated hemoglobin 137 mg/dL 60-110 [facility] ([facility] ) ID Date Data Source [id number] 12/13/2020 11:35:00 AM EDT [facility] ([facility]) Name Value Range Interpretation Code Description Data Nano rce(s) Supporting Document(s) Erythrocytes [#/volume] in Blood by Automated count 4.43 x10*6/UL 4.2 0-6.30 [facility] ([facility]) Leukocytes [#/volume] in Blood by Automated count 8.9 x10*3/UL 4.1-10 .9 [facility] ([facility]) Hemoglobin [Mass/volume] in Blood 13.0 g/dL 12.0-18.0 [facility] Hematocrit [Volume Fraction] of Blood by Automated count 37.5 % 3 7.0-51.0 [facility] ([facility]) MCV 84.5 fL 80.0-97.0 [facility] ([facility]) MCH 29.4 pg 26.0-32.0 [facility]) MCHC 34.8 g/dL 31.0-38.0 [facility] ([facility]) Platelets [#/volume] in Blood by Automated count 289 x10*3/UL 140-440 [facility] Erythrocyte distribution width [Ratio] by Automated count 12.6 % 11.6-13.7 [facility] ([facility]) MPV 8.3 FL 7.8-11.0 [facility]) Lymph % 26.6 % 10.0-58.5 [facility] ([facility]) Lymph # 2.3 x10*3/UL 0.6-4.1 [facility] ([facility]) Neut % 67.1 % 37.0-92.0 [facility]) Mid % 6.3 % 1.7-9.3 [facility] ([facility]) Neut # 6.0 x10*3/UL 2.0-7.8 [facility] ([facility]) Mid # 0.6 x10*3/UL 0.1-0.6 [facility] ([facility]) ID Date Data Source [id number] 12/13/2020 11:35:00 AM EDT [facility] ([facility]) Name Value Range Interpretation Code Description Data Nano rce(s) Supporting Document(s) Urea nitrogen [Mass/volume] in Serum or Plasma 28 mg/dL 7-18 [facility] ([facility]) Glucose [Mass/volume] in Serum or Plasma 120 mg/dL 74-99 [facility] ([facility]) 100-125 mg/dL PRE-DIABETES/FASTING >126 mg/dL DIABETES/FASTING Creatinine 1.5 mg/dL 0.6-1.3 [facility] ([facility]) Sodium [Moles/volume] in Serum or Plasma 140 meq/L 136-145 [facility] ([facility]) Potassium [Moles/volume] in Serum or Plasma 4.0 meq/L 3.5-5.1 [facility] ([facility]) Chloride [Moles/volume] in Serum or Plasma 103 meq/L 98-107 [facility] ([facility]) Carbon dioxide, total [Moles/volume] in Serum or Plasma 31 meq/L 21 -32 [facility] ([facility]) Calcium [Mass/volume] in Serum or Plasma 8.8 mg/dL 8.5-10.1 [facility] ([facility]) Alkaline phosphatase isoenzyme [Units/volume] in Serum or Pl asma 70 mg/dL 46-116 [facility] Total Bilirubin 0.5 mg/dL 0.2-1.0 [facility] ([facility]) Aspartate aminotransferase [Enzymatic activity/volume] in Serum or Plasma 11 U/L 15-37 [facility] ([facility] ) Alanine aminotransferase [Enzymatic activity/volume] in Seru m or Plasma 13 U/L 12-78 [facility] ([facility]) Albumin [Mass/volume] in Serum or Plasma 3.3 g/dL 3.4-5.0 [facility] ([facility]) Proteinase 3 Ab [Units/volume] in Serum 6.6 g/dL 6.4-8.2 [facility] ([facility]) A/G Ratio 1.00 CALC 1.00-1.90 [facility]) Glomerular filtration rate/1.73 sq M pre dicted among non-blacks [Volume Rate/Area] in Serum or Plasma by Creatinine-based formula (MDRD) 44 mL/min [facility] ([facility]) Glomerular filtration rate/1.73 sq M pre dicted among blacks [Volume Rate/Area] in Serum or Plasma by Creatinine-based formula (MDRD) 54 mL/min [facility] <content>CHRONIC KIDNEY DISEASE STAGING PER NKF</content>
<content></content>
<content>STAGE I & II GFR >= 60 NORMAL TO MILDLY DECREASED</content>
<content>STAGE III GFR 30-59 MODERATELY DECREASED</content>
<content>STAGE IV GFR 15-29 SEVERELY DECREASED</content>
<content>STAGE V GFR <15 VERY LITTLE GFR LEFT</content>
<content>ESRD GFR <15 ON SUPPLY MANAGER</content>
<content></content> ID Date Data Source [id number] 12/13/2020 11:35:00 AM EDT [facility] ([facility]) Name Value Range Interpretation Code Description Data Nano rce(s) Supporting Document(s) Hemoglobin A1c/Hemoglobin.total in Blood Laboratory test result [facility] ([facility]) ID Date Data Source [id number] 06/11/2020 09:10:00 AM EST [facility] ([facility]) Name Value Range Interpretation Code Description Data Nano rce(s) Supporting Document(s) Glucose [Mass/volume] in Serum or Plasma 118 mg/dL 74-99 [facility] ([facility]) 100-125 mg/dL PRE-DIABETES/FASTING >126 mg/dL DIABETES/FASTING Sodium [Moles/volume] in Serum or Plasma 140 meq/L 136-145 [facility] ([facility]) Urea nitrogen [Mass/volume] in Serum or Plasma 29 mg/dL 7-18 [facility] ([facility]) Creatinine 1.5 mg/dL 0.6-1.3 [facility] Carbon dioxide, total [Moles/volume] in Serum or Plasma 30 meq/L 21 -32 [facility] ([facility]) Chloride [Moles/volume] in Serum or Plasma 100 meq/L 98-107 [facility] ([facility]) Potassium [Moles/volume] in Serum or Plasma 3.9 meq/L 3.5-5.1 [facility] ([facility]) Alkaline phosphatase isoenzyme [Units/volume] in Serum or Pl asma 63 mg/dL 46-116 [facility] ([facility]) Calcium [Mass/volume] in Serum or Plasma 9.1 mg/dL 8.5-10.1 [facility] ([facility]) Total Bilirubin 0.6 mg/dL 0.2-1.0 [facility] ([facility]) Alanine aminotransferase [Enzymatic activity/volume] in Seru m or Plasma 18 U/L 12-78 [facility] ([facility]) Aspartate aminotransferase [Enzymatic activity/volume] in Serum or Plasma 12 U/L 15-37 [facility] ([facility] ) Albumin [Mass/volume] in Serum or Plasma 3.6 g/dL 3.4-5.0 [facility] ([facility]) Proteinase 3 Ab [Units/volume] in Serum 6.9 g/dL 6.4-8.2 [facility] ([facility]) Glomerular filtration rate/1.73 sq M pre dicted among non-blacks [Volume Rate/Area] in Serum or Plasma by Creatinine-based formula (MDRD) 44 mL/min [facility] A/G Ratio 1.09 CALC 1.00-1.90 [facility] ([facility]) Glomerular filtration rate/1.73 sq M pre dicted among blacks [Volume Rate/Area] in Serum or Plasma by Creatinine-based formula (MDRD) 54 mL/min [facility] <content>CHRONIC KIDNEY DISEASE STAGING PER NKF</content>
<content></content>
<content>STAGE I & II GFR >= 60 NORMAL TO MILDLY DECREASED</content>
<content>STAGE III GFR 30-59 MODERATELY DECREASED</content>
<content>STAGE IV GFR 15-29 SEVERELY DECREASED</content>
<content>STAGE V GFR <15 VERY LITTLE GFR LEFT</content>
<content>ESRD GFR <15 ON SUPPLY MANAGER</content>
<content></content> ID Date Data Source [id number] 06/11/2020 09:10:00 AM EST [facility] ([facility]) Name Value Range Interpretation Code Description Data Nano rce(s) Supporting Document(s) Hemoglobin A1c/Hemoglobin.total in Blood 6.3 % [facility] Result Notes: Pre-Diabetes 5.7 - 6.4 % Diabetes = or > 6.5% Glucose mean value [Mass/volume] in Blood Estimated fr om glycated hemoglobin 134 mg/dL 60-110 [facility] ([facility] ) ID Date Data Source [id number] 06/11/2020 09:10:00 AM EST [facility] ([facility]) Name Value Range Interpretation Code Description Data Nano rce(s) Supporting Document(s) Leukocytes [#/volume] in Blood by Automated count 11.4 x10*3/UL 4.1-1 0.9 [facility] ([facility]) NOTE: RESULT VERIFIED. Hemoglobin [Mass/volume] in Blood 13.6 g/dL 12.0-18.0 [facility] Erythrocytes [#/volume] in Blood by Automated count 4.56 x10*6/UL 4.2 0-6.30 [facility] Hematocrit [Volume Fraction] of Blood by Automated count 38.2 % 3 7.0-51.0 [facility] ([facility]) MCHC 35.8 g/dL 31.0-38.0 [facility]) MCH 29.9 pg 26.0-32.0 [facility] ([facility]) MCV 83.6 fL 80.0-97.0 [facility] ([facility]) Platelets [#/volume] in Blood by Automated count 326 x10*3/UL 140-440 [facility] Erythrocyte distribution width [Ratio] by Automated count 12.2 % 11.6-13.7 [facility] ([facility]) MPV 8.5 FL 7.8-11.0 [facility] Lymph % 23.7 % 10.0-58.5 [facility] ([facility]) Mid % 5.6 % 1.7-9.3 [facility] ([facility]) Lymph # 2.7 x10*3/UL 0.6-4.1 [facility] ([facility]) Mid # 0.6 x10*3/UL 0.1-0.6 [facility] ([facility]) Neut % 70.7 % 37.0-92.0 [facility] Neut # 8.1 x10*3/UL 2.0-7.8 [facility] ([facility]) ID Date Data Source [id number] 04/09/2020 09:09:00 AM EDT [facility] ([facility] Name Value Range Interpretation Code Description Data Nano rce(s) Supporting Document(s) Protein [Presence] in Urine by Test strip Laboratory test result [facility] ([facility]) Glucose [Presence] in Urine Laboratory test result [facility] ([facility]) Ua Nitrite Laboratory test result ME [facility] ([facility]) Blood [Presence] in Urine by Visual Laboratory test result [facility] ([facility]) Ua Leuko Laboratory test result [facility] ([facility]) Clarity of Urine Laboratory test result [facility] ([facility]) Color of Urine Laboratory test result [facility] ([facility]) Ketones [Presence] in Urine by Test strip Laboratory test result [facility] ([facility]) Bilirubin.total [Presence] in Urine by Test strip Laboratory test res ult [facility] ([facility]) Ua Specific [place] Laboratory test result 1.003-1.030 [facility] ([facility]) pH of Urine by Test strip 5.0 5.0-7.5 [facility] ([facility]) Urobilinogen [Mass/volume] in Urine by Test strip 0.2 E.U./dL 0.0-1.0 [facility] ([facility]) ID Date Data Source [id number] 03/28/2020 10:19:00 AM EDT [facility] ([facility]) Name Value Range Interpretation Code Description Data Nano rce(s) Supporting Document(s) Bacteria identified in Urine by Culture Laboratory test result [facility] ([facility]) FULL REPORT IN LAB NOTES (e[facility] and [facility] ). NO GROWTH ID Date Data Source [id number] 03/28/2020 10:18:00 AM EDT [facility] ([facility]) Name Value Range Interpretation Code Description Data Nano rce(s) Supporting Document(s) Urine Color Laboratory test result [facility] T ([facility]) Urine PH 6.0 units 5.0-9.0 [facility]) Urine Appearance Laboratory test result [facility] ([facility]) Urine Blood Laboratory test result [facility] T ([facility]) Urine Leukocytes Laboratory test result [facility] ([facility] [facility] Specific gravity of Urine 1.020 1.005-1.030 [place] DENT ([facility]) Glucose [Presence] in Urine Laboratory test result MEDENT ([facility]) Urine Protein Laboratory test result 0-0 MED ENT ([facility]) Urine Nitrite Laboratory test result MED ENT ([facility]) Bilirubin.total [Mass/volume] in Serum or Plasma Laboratory test resu lt MEDENT ([facility]) Urine Ketone Laboratory test result MEDE NT ([facility]) Urine Urobilinogen 0.2 mg/dL 0.2-1.0 MEDENT ([facility]) Procedure Social History Code Duration Value Status Description Data Source(s ) Smoking 04/09/2020 12:00:00 AM EDT Former Cigarette Smok er 2 Packs Daily completed Former Cigarette Smoker 2 Packs Daily MEDENT ([facility]) Vital Signs ID Date Data Source UNK Name Value Range Interpretation Code Description Data Source(s) Systolic blood pressure 96 mm[Hg] 96 mm[Hg] M EDENT ([facility]) Diastolic blood pressure 50 mm[Hg] 50 mm[Hg] MEDENT ([facility]) Heart rate 80 /min 80 /min [facility] ([facility]) Body height 69 [in_i] 69 [in_i] MEDENT ([facility]) 5'9" Body weight 169.00 [lb_av] 169.00 [lb_av] MEDEN T ([facility]) Oxygen saturation in Arterial blood by Pulse oximetry 96 % 96 % MEDENT ([facility]) Body mass index (BMI) [Ratio] 25.0 kg/m2 25.0 k g/m2 [facility] ([facility]) Body temperature 97.1 [degF] 97.1 [degF] MEDENT ([facility] ) Body height 67 [in_i] 67 [in_i] MEDENT ([facility]) 5'7" Body mass index (BMI) [Ratio] 26.5 kg/m2 26.5 k g/m2 MEDENT ([facility] ) Body weight 169.00 [lb_av] 169.00 [lb_av] MEDEN T ([facility] ) Systolic blood pressure 122 mm[Hg] 122 mm[Hg] M EDENT ([facility]) Diastolic blood pressure 74 mm[Hg] 74 mm[Hg] MEDENT ([facility]) Heart rate 78 /min 78 /min MEDENT ([facility]) Body height 69 [in_i] 69 [in_i] MEDENT ([facility]) 5'9" Body weight 174.00 [lb_av] 174.00 [lb_av] MEDEN T ([facility]) Body mass index (BMI) [Ratio] 25.7 kg/m2 25.7 k g/m2 MEDENT ([facility]) Systolic blood pressure 124 mm[Hg] 124 mm[Hg] M EDENT ([facility]) Diastolic blood pressure 72 mm[Hg] 72 mm[Hg] MEDENT ([facility]) Heart rate 70 /min 70 /min MEDENT ([facility]) Body height 69 [in_i] 69 [in_i] MEDENT ([facility]) 5'9" Body weight 176.00 [lb_av] 176.00 [lb_av] MEDEN T ([facility]) Body mass index (BMI) [Ratio] 26.0 kg/m2 26.0 k g/m2 MEDENT ([facility]) Body temperature 97.1 [degF] 97.1 [degF] MEDENT ([facility] ) Body height 69 [in_i] 69 [in_i] MEDENT ([facility] ) 5'9" Body weight 182.31 [lb_av] 182.31 [lb_av] MEDEN T ([facility] ) Body mass index (BMI) [Ratio] 26.9 kg/m2 26.9 k g/m2 MEDENT ([facility] ) Systolic blood pressure 120 mm[Hg] 120 mm[Hg] M EDENT ([facility]) Diastolic blood pressure 72 mm[Hg] 72 mm[Hg] MEDENT ([facility]) Body height 69 [in_i] 69 [in_i] OCTAVIO ([facility]) 5'9" Body weight 175.00 [lb_av] 175.00 [lb_av] CRICKET [facility] ([facility]) Body mass index (BMI) [Ratio] 25.8 kg/m2 25.8 k g/m2 OCTAV[facility] ([facility])
--- NOTE | 2021-05-12 16:58 | HPEPDOC ---
[facility] Medical History & Physical Date of Admission May 12, 2021 Date of Service: May 12, 2021 Primary Care Physician: Jr Valenzuela Collins Attending Physician: MIMI SADLER DO History and Physical CHIEF COMPLAINT: GI bleeding HISTORY OF PRESENT ILLNESS: Patient is an 85-year-old male who presented to the emergency department today with a 1 week history of dark stools. Patient states that his stools were his normal brown and solid up in about 1 week ago and they became very soft if not liquid and black. Patient states that he does not have any abdominal pain. Patient has noticed increased bowel movements. Patient states he is try to switch to a soft diet to help with this however, this has not helped. Patient denies any chest pain or abdominal pain at this time. Harshad rivers states he is having difficulty catching his wind but this has been going on for greater than 1 week. Patient does notice that it is mildly worse over the last week. Patient denies having any other symptoms at this time. Patient does have a history of diverticulosis and had a lower GI bleed in 2007 according to the emergency department provider. Patient is otherwise feeling well today PAST MEDICAL HISTORY: 1. Hypertension. 2. Glaucoma. PAST SURGICAL HISTORY: 1. Cholecystectomy. 2. ERCP post cholecystectomy. SOCIAL HISTORY: Patient denies smoking cigarettes or using illicit drugs. Patient says he may have 1 glass of wine a week FAMILY HISTORY: Patient's mother lived into her 80s and father in his 70s. Patient denied them having a history of hypertension, heart disease, or diabetes ALLERGIES: Please see below. REVIEW OF SYSTEMS: General: Patient denies fevers HEENT: Patient denies headaches Cardiovascular: Patient denies chest pain Respiratory: Patient denies shortness of breath, cough GI: Patient denies abdominal pain, nausea, vomiting. Patient reports black loose stools as above : Patient denies increased frequency or pain with urination Extremities: Patient denies swelling or pain in extremities Neurological: Patient denies numbness or tingling in legs Skin: Patient denies any new rashes or lesions. Hematologic: Patient denies any easy bruising. Lymphatic: Patient denies any lumps lumps or bumps in neck, axilla, or groin HOME MEDICATIONS: Please see below. PHYSICAL EXAMINATION: VITAL SIGNS: Temperature 96.6, pulse 99, respiratory rate 18, blood pressure 113/56, pulse oximetry 100% on room air. General: Alert and oriented male patient who was sitting up on the stretcher when I walked in. Patient did not appear to be in any acute distress. HEENT: Normocephalic, atraumatic, moist mucous membranes. Neck: No lymphadenopathy or thyromegaly Cardiac: Regular rate and rhythm, no murmurs, normal S1, normal S2 Pulm: Clear to auscultation bilaterally. No wheezes, rhonchi, rales Abd: Nondistended, nontender to palpation, normal bowel sounds Ext: No edema bilateral lower extremities Neuro: Patient was able to move all 4 extremities on command and reported equal sensation light touch in all 4 extremities. Skin: Skin of the head, neck, upper and lower extremities was examined did not show any evidence of rash or wounds. LABORATORY DATA: See below. IMAGING: Chest x-ray performed on 05/12/2021 was reported to show left basilar opacities have developed since last exam. Subsegmental atelectatic change and/or fibrotic change or even possibly early pneumonia. MICROBIOLOGY: Please see below. ASSESSMENT: 85-year-old male who presented to the emergency department with GI bleeding. . PLAN: 1. GI bleeding. Because of the dark stools, this may be an upper GI bleed. Patient does have history of diverticulosis but does not complain of any abdominal pain. This may be diverticular bleeding that is slow. I did contact gastroenterology who advised to put the patient on IV Protonix 40 mg twice daily and hold the patient n.p.o. with plan to do an upper endoscopy on the patient tomorrow. We will trend the patient's hemoglobin every 6 hours and transfuse if the patient reaches hemoglobin below 7 or if he becomes symptomatic with his anemia. Patient states that he does not feel short of breath or overly fatigued. Patient has been consented for blood 2. Acute kidney injury. Patient's current creatinine is 0.3 above his baseline from December 2020. Patient may be dehydrated secondary to GI bleeding. Patient received a liter of normal saline and we will continue to monitor this. HARISH inhibitor and NSAIDs that the patient was on at home have been stopped and we will continue to monitor the patient's kidney function. 3. Acute blood loss anemia. Patient's hemoglobin was 13 in December 2020 according to labs that were ordered by the patient's primary care provider which the patient had present in the room. Patient had labs done today at his primary care provider which showed a hemoglobin of 9.9. In the emergency department patient is 9.3. We will continue to trend hemoglobin as above. 4. Hypertension. Amlodipine and hydrochlorothiazide have been started with hold parameters. Hold lisinopril at this time due to MANDI. 5. Glaucoma. Continue patient's home eyedrops. 6. DVT prophylaxis: Mechanical due to GI bleeding 7. CODE STATUS: Patient states he has a MOST form for DO NOT RESUSCITATE. When I asked the patient what his wishes were for for intubation he states that if it was a reversible process then he would want it. Patient has been made DNR with a trial of intubation. Disposition: Patient will be admitted to the medical surgical floor. I expect the patient be discharged after greater than or equal to 2 midnight stay. Vital Signs Vital Signs Date Time Temp Pulse Resp B/P (MAP) Pulse Ox O2 Delivery O2 Flow Rate FiO2 05/12/21 12:58 96.6 99 18 113/56 (75) 100 Room Air Laboratory Data Labs 24H Laboratory Tests 2 05/12/21 13:50: Immature Granulocyte % (Auto) 1.1, Neutrophils (%) (Auto) 74.1H, Lymphocytes (%) (Auto) 17.0L, Monocytes (%) (Auto) 6.8, Eosinophils (%) (Auto) 0.6, Basophils (%) (Auto) 0.4, Neutrophils # (Auto) 10.5H, Lymphocytes # (Auto) 2.4, Monocytes # (Auto) 1.0H, Eosinophils # (Auto) 0.1, Basophils # (Auto) 0.1, Nucleated Red Blood Cells % (auto) 0.0, Prothrombin Time 14.1H, Prothromb Time International Ratio 1.04, Activated Partial Thromboplast Time 26.8, Anion Gap 8, Glomerular Filtration Rate 38.5, Calcium Level 8.8, Total Bilirubin 0.3, Direct Bilirubin < 0.1, Aspartate Amino Transf (AST/SGOT) 14, Alanine Aminotransferase (ALT/SGPT) 16, Alkaline Phosphatase 55, Total Protein 6.1L, Albumin 3.0L, Albumin/Globulin Ratio 1.0, Lipase 138 05/12/21 15:08: Coronavirus (COVID-19)(PCR) NEGATIVE, Influenza Type A (RT-PCR) NEGATIVE, Influenza Type B (RT-PCR) NEGATIVE, Respiratory Syncytial Virus (PCR) NEGATIVE CBC/BMP Laboratory Tests 05/12/21 13:50 Home Medications Scheduled Amlodipine Besylate (Amlodipine Besylate) 5 Mg Tab, 5 MG PO DAILY Brimonidine Tartrate (Brimonidine Tartrate) 0.2 % Chandni, 1 DROP OS BID Cholecalciferol (Vitamin D3) (Vitamin D3) 125 Mcg Capsule, 125 MCG PO DAILY Dorzolamide HCl/Timolol Maleat (Dorzolamide-Timolol Eye Drops) 10 Ml Drops, 1 DROP OS TID PT DOES BID Dutasteride (Avodart) 0.5 Mg Capsule, 0.5 MG PO DAILY Hydrochlorothiazide (Hydrochlorothiazide) 25 Mg Tab, 25 MG PO DAILY Lisinopril (Lisinopril) 5 Mg Tab, 5 MG PO DAILY Multivitamin (Multivitamin) 1 Each Tablet, 1 EACH PO DAILY Scheduled PRN Ibuprofen (Ibuprofen) 200 Mg Capsule, 200 MG PO BID PRN for PAIN LEVEL 1-4 Allergies Coded Allergies: No Known Allergies (Unverified , 05/12/21) A-FIB/CHADSVASC A-FIB History Current/History of A-Fib/PAF?: No MIMI SADLER DO May 12, 2021 16:58
[2021-05-12] MEDS ORDERED: PANTOPRAZOLE 40MG VIAL (C9113 PER 1) IV SCH (17:00)
[2021-05-12 18:45] VITALS: BP 167/71
[2021-05-12 18:53] LABS: HEMATOCRIT 26.8 % (42.0-52.0); HEMOGLOBIN 8.9 g/dl (13.5-17.5); MEAN CORPUSCULAR HEMOGLOBIN 29.8 pg (27.0-33.0); MEAN CORPUSCULAR HGB CONC 33.2 g/dl (32.0-36.5); MEAN CORPUSCULAR VOLUME 89.6 fl (80.0-96.0); PLATELET COUNT, AUTOMATED 299 10^3/uL (150-450); RED BLOOD COUNT 2.99 10^6/uL (4.30-6.10)
[2021-05-12 19:20] LABS: CALCIUM LEVEL 8.7 MG/DL (8.8-10.2); CREATININE FOR GFR 1.41 MG/DL (0.70-1.30); GLOMERULAR FILTRATION RATE 50.7 (>35)
[2021-05-12 20:44] VITALS: BP 154/68
[2021-05-12] MEDS: COSOPT OCUMETER PLUS 10ML (DORZOLAMIDE/TIMOLOL) OS SCH (21:26)
[2021-05-13 00:30] LABS: HEMATOCRIT 23.6 % (42.0-52.0); HEMOGLOBIN 7.8 g/dl (13.5-17.5); MEAN CORPUSCULAR HEMOGLOBIN 29.9 pg (27.0-33.0); MEAN CORPUSCULAR HGB CONC 33.1 g/dl (32.0-36.5); MEAN CORPUSCULAR VOLUME 90.4 fl (80.0-96.0); PLATELET COUNT, AUTOMATED 251 10^3/uL (150-450); RED BLOOD COUNT 2.61 10^6/uL (4.30-6.10); WHITE BLOOD COUNT 12.4 10^3/uL (4.0-10.0)
[2021-05-13 05:22] VITALS: BP 124/67
[2021-05-13] MEDS: NS 1,000 ML IV SCH (05:34)
[2021-05-13 06:24] LABS: HEMATOCRIT 21.9 % (42.0-52.0); HEMOGLOBIN 7.1 g/dl (13.5-17.5); MEAN CORPUSCULAR HEMOGLOBIN 29.5 pg (27.0-33.0); MEAN CORPUSCULAR HGB CONC 32.4 g/dl (32.0-36.5); MEAN CORPUSCULAR VOLUME 90.9 fl (80.0-96.0); PLATELET COUNT, AUTOMATED 246 10^3/uL (150-450); RED BLOOD COUNT 2.41 10^6/uL (4.30-6.10); WHITE BLOOD COUNT 11.1 10^3/uL (4.0-10.0)
[2021-05-13 06:43] LABS: CALCIUM LEVEL 7.9 MG/DL (8.8-10.2); CREATININE FOR GFR 1.44 MG/DL (0.70-1.30); GLOMERULAR FILTRATION RATE 49.5 (>35); MAGNESIUM LEVEL 2.1 MG/DL (1.8-2.4); POTASSIUM SERUM 3.6 MEQ/L (3.5-5.1)
--- NOTE | 2021-05-13 08:05 | ECGEPIP ---
[facility] - ED Test Date: 2021-05-12 Pat Name: NEHEMIAS JUAREZ Department: Room: [place] [address] Gender: Male [place] Manager: ED : 1935 Requested By: Roger Howard Order Number: [id number] Reading MD: Roger Gonzales Measurements Intervals [place] Rate: 72 P: 39 IN: 222 QRS: -1 QRSD: 74 T: 11 QT: 394 QTc: 431 Interpretive Statements Sinus rhythm with 1st degree AV block SIMILAR TO 01/22/16 Electronically Signed on 05-13-2021 8:05:14 EDT by Roger Gonzales
[2021-05-13] MEDS ORDERED: FLUBLOK(EGG FREE)(QUAD)INFLUENZA VACC 0.5ML SYRINGE 18YRS & OLDER IM ONE (09:00)
[2021-05-13] MEDS ORDERED: PANTOPRAZOLE 40MG VIAL (C9113 PER 1) IV SCH (09:00)
[2021-05-13] MEDS ORDERED: amLODIPine 5 MG TAB PO SCH (09:00)
[2021-05-13] MEDS: COSOPT OCUMETER PLUS 10ML (DORZOLAMIDE/TIMOLOL) OS SCH ×2 (10:06→20:43)
[2021-05-13] MEDS: DUTASTERIDE 0.5 MG CAP (AVODART) PO SCH (10:06)
[2021-05-13 13:19] LABS: HEMATOCRIT 22.6 % (42.0-52.0); HEMOGLOBIN 7.4 g/dl (13.5-17.5); MEAN CORPUSCULAR HEMOGLOBIN 29.8 pg (27.0-33.0); MEAN CORPUSCULAR HGB CONC 32.7 g/dl (32.0-36.5); MEAN CORPUSCULAR VOLUME 91.1 fl (80.0-96.0); PLATELET COUNT, AUTOMATED 266 10^3/uL (150-450); RED BLOOD COUNT 2.48 10^6/uL (4.30-6.10); WHITE BLOOD COUNT 12.1 10^3/uL (4.0-10.0)
[2021-05-13 14:00] VITALS: BP_SYST 121; BP_SYST 122; BP_DIAS 57; BP_DIAS 64
[2021-05-13] MEDS ORDERED: NS 1,000 ML IV SCH ×2 (15:45→18:50)
[2021-05-13 16:26] VITALS: BP 124/64
--- NOTE | 2021-05-13 16:39 | IPNPDOC ---
Text Note Date of Service The patient was seen on 05/13/21. NOTE Subjective: Patient reported 2 bowel movements with red blood overnight. Denies any chest pain or palpitations. Objective: GENERAL APPEARANCE: NAD HEENT: no scleral icterus, no JVD, EOMI CARDIOVASCULAR: S1S2 LUNGS: Diminished lung sounds bilaterally ABDOMEN: soft & not tender w palpation MUSCULOSKELETAL: no cyanosis, no swelling INTEGUMENT: no generalized pallor NEUROLOGICAL: cranial nerve function from 2-12 intact, follows commands, speech not dysarthric Assessment and plan Patient is 85 years old male with past medical history of hypertension presented to hospital with GI bleed Acute blood loss anemia Most likely secondary to GI bleeding In the morning hemoglobin dropped to 7.4 We will give 1 unit of blood GI bleed GI team will proceed with EGD today Continue PPI IV H&H every 6 hours MANDI Improved Most likely due to kidney hypoperfusion Continue to monitor Hypertension Blood pressure under control Continue home meds with parameters Glaucoma. Continue patient's home eyedrops. DVT prophylaxis: Mechanical due to GI bleeding VS,Fishbone, I+O VS, Fishbone, I+O Laboratory Tests 05/12/21 18:26 05/12/21 23:53 05/13/21 05:48 05/13/21 13:08 Vital Signs Date Time Temp Pulse Resp B/P (MAP) Pulse Ox O2 Delivery O2 Flow Rate FiO2 05/13/21 14:00 98.6 67 16 121/57 (78) 100 Room Air l I&O- Last 24 Hours up to 6 AM 05/13/21 06:00 Intake Total 2200 ml Output Total 900 ml Balance 1300 ml JOANN JENSEN DO May 13, 2021 16:39
[2021-05-13 16:50] VITALS: BP 125/64
[2021-05-13] MEDS ORDERED: propofoL 200 MG/20 ML VIAL As Ordered ONE (18:03)
[2021-05-13] MEDS ORDERED: LIDOCAINE 2% 100MG/5ML SDV (FOR ANES.) As Ordered ONE (18:03)
[2021-05-13] MEDS ORDERED: fentaNYL 100 MCG/2 ML INJECTION (J3010) As Ordered ONE (18:03)
[2021-05-13] MEDS ORDERED: MIDAZOLAM INJ 2MG/2ML VIAL (J2250 PER 1MG) As Ordered ONE (18:03)
--- NOTE | 2021-05-13 18:44 | ROOR ---
Patient Name: Terry Sykes Procedure Date: 05/13/2021 6:09 PM Date of : 1935 Age: 85 Gender: Male Note Status: Finalized Procedure: Upper GI endoscopy Indications: Acute post hemorrhagic anemia, Melena Providers: Tejinder Clark MD Referring MD: Stan Vitale Do Requesting Provider: Medicines: Monitored Anesthesia Care Complications: No immediate complications. Procedure: Pre-Anesthesia Assessment: - Prior to the procedure, a History and Physical was performed, and patient medications and allergies were reviewed. The patient is competent. The risks and benefits of the procedure and the sedation options and risks were discussed with the patient. All questions were answered and informed consent was obtained. Patient identification and proposed procedure were verified by the physician, the nurse and the anesthesiologist in the procedure room. Mental Status Examination: alert and oriented. Airway Examination: normal oropharyngeal airway and neck mobility. Respiratory Examination: clear to auscultation. CV Examination: normal. Prophylactic Antibiotics: The patient does not require prophylactic antibiotics. Prior Anticoagulants: The patient has taken no previous anticoagulant or antiplatelet agents. ASA Grade Assessment: III - A patient with severe systemic disease. After reviewing the risks and benefits, the patient was deemed in satisfactory condition to undergo the procedure. The anesthesia plan was to use monitored anesthesia care (MAC). Immediately prior to administration of medications, the patient was re-assessed for adequacy to receive sedatives. The heart rate, respiratory rate, oxygen saturations, blood pressure, adequacy of pulmonary ventilation, and response to care were monitored throughout the procedure. The physical status of the patient was re-assessed after the procedure. The Endoscope was introduced through the mouth, and advanced to the second part of duodenum. The upper GI endoscopy was accomplished without difficulty. The patient tolerated the procedure well. Findings: The examined esophagus was normal. One non-bleeding superficial gastric ulcer with a clean ulcer base (Garth Class III) was found at the pylorus. The lesion was 10 mm in largest dimension. Biopsies were taken with a cold forceps for histology. Biopsies were taken with a cold forceps for Helicobacter pylori testing. Verification of patient identification for the specimen was done by the physician and nurse using the patient's name, date and medical record number. Estimated blood loss was minimal. The duodenal bulb and second portion of the duodenum were normal. Impression: - Normal esophagus. - Non-bleeding gastric ulcer with a clean ulcer base (Garth Class III). Biopsied. - Normal duodenal bulb and second portion of the duodenum. Recommendation: - Patient has a contact number available for emergencies. The signs and symptoms of potential delayed complications were discussed with the patient. Return to normal activities tomorrow. Written discharge instructions were provided to the patient. - Continue present medications. - Switch IV pantoprazole to oral omeprazole 40 mg once daily for total course of 8 weeks and then taper off /stop. - Clear liquid diet today, then advance as tolerated to high fiber diet if stable hemoglobin levels. - Await pathology results. - If Biopsy shows H. pylori will need therapy with antibiotic course.. - Observe patient's clinical course. - Perform a colonoscopy (in 1 day after bowel prep,) if persistent rectal bleeding or drop in Hemoglobin. - Miralax 1 capful (17 grams) in 8 ounces of water PO BID for atleast 7 days and then adjust dose to have one to two soft bowel movements daily. - Telephone endoscopist if symptomatic. - Return to primary care physician. Procedure Code(s): --- Professional --- 94883, Esophagogastroduodenoscopy, flexible, transoral; with biopsy, single or multiple Diagnosis Code(s): --- Professional --- K25.9, Gastric ulcer, unspecified as acute or chronic, without hemorrhage or perforation D62, Acute posthemorrhagic anemia K92.1, Melena (includes Hematochezia) CPT copyright 2019 [employer]. All rights reserved. The codes documented in this report are preliminary and upon cpc coder review may be revised to meet current compliance requirements. Tejinder Clark MD Tejinder Clark MD 05/13/2021 6:44:22 PM Electronically signed by Tejinder Clark MD Number of Addenda: 0 Note Initiated On: 05/13/2021 6:09 PM Estimated Blood Loss: Estimated blood loss: none.
[2021-05-13] MEDS ORDERED: LR 1,000 ML IV SCH (18:50)
[2021-05-13] MEDS ORDERED: ONDANSETRON 4MG/2ML VIAL IV PRN (18:50)
--- NOTE | 2021-05-13 18:59 | CR.PDOC ---
General Date of Consultation: May 12, 2021 Referring Provider: MIMI MÁRQUEZ DO Attending Physician: JACQUELIN ARIAS MD Consultation Referring physician / PCP : Dr. Márquez. Reason for consult: GI bleeding. HPI: 85-year-old male who presented to the emergency department today with a 1 week history of dark stools. Patient states that his stools were his normal brown and solid up in about 1 week ago and they became very soft if not liquid and black. Patient states that he does not have any abdominal pain. Patient has noticed increased bowel movements. Patient states he is try to switch to a soft diet to help with this however, this has not helped. Patient denies any chest pain or abdominal pain at this time. Patient states he is having difficulty catching his wind but this has been going on for greater than 1 week. Patient does notice that it is mildly worse over the last week. Patient denies having any other symptoms at this time. Pertinent negative GI symptoms: Patient denies nausea, vomiting, diarrhea, abdominal pain, loss of appetite, early satiety or unintentional weight loss, hematemesis, melena or hematochezia. Patient reports regular bowel movements. Review of Systems: GI: as stated above CVS: No chest pain, No palpitations, No leg swelling RS: No Shortness of breath, No Wheezing INSIGHTS STRATEGIST: No loss of consciousness, No focal motor weakness., Hematology: No easy bruising, No gum bleeding, Musculoskeletal: No joint pain, ambulating well. : No blood inurine, No burning sensation of the urine ENT: No ear discharge/ pain, No dysphagia. Eyes: No photophobia. Skin: No rash Home medications: reviewed. No Plavix and No anticoagulants Medical h/o: As above. Surgical h/o: None on abdomen. Social h/o: Denies Alcohol, smoking, IVDA/ drugs. Family h/o of GI cancers - None Prior Endoscopies: None in [facility]. --- EGD --- Colonoscopy Prior GI evaluation: None in [facility] Exam: Vitals: reviewed General: Alert and oriented x 3, not in acute distress HEENT: No pallor, no icterus. Normal oropharynx, NO cervical lymphadenopathy. Chest: symmetric with bilateral air entry, CVS: S1, S2 heard, Abdomen: non-distended, soft, non-tender, no rigidity or guarding, no palpable masses, normal bowel sounds heard. Rectal exam: Patient refused / Deferred at this time in view of scheduled colonoscopy. Extremities: pulses palpable, no pedal edema, INSIGHTS STRATEGIST: no focal motor or sensory deficits. Moves all extremities Skin: no rash. Labs: reviewed. HCV screening indicated ordered / done OR Not indicated due to age. Imaging: none / reviewed. Impression: -- Acute post hemorrhagic anemia with recent use of Ibuprofen and multiple episodes of dark stools over the past week, and also having some bright red blood in stools ( on exam), labs showing acute anemia and elevated BUN/ Cr . DDxrule out PUD vs AVM vs diverticular bleeding needs further evaluation. Recommendations: -- Patient educated about the prior test results and all questions answered. -- NPO for now. -- IV Pantoprazole 40 mg twice daily for now. -- Monitor Hemoglobin and hematocrit and transfuse if needed to goal hemoglobin levels around 8-9. -- Patient is educated about the need for EGD and Colonoscopy for further evaluation. Patient educated about the procedure(s), indications, risks (including but not limited to bleeding, infection, perforation, anesthesia risks, including ), benefits and all alternatives including conservative measures without intervention. Patient verbalized understanding and wanted to do EGD for now and did not want Colonoscopy due to his recent colonoscopy. -- Patient signed informed consent for EGD. -- Please follow operative note for post procedure recommendations. -- Plan of care educated to patient and patient verbalized understanding and agreed. All questions answered. -- Recommendations communicated to primary team. Patient to follow with PCP upon discharge for routine medical care. Vital Signs/I&O Vital Signs Date Time Temp Pulse Resp B/P (MAP) Pulse Ox O2 Delivery O2 Flow Rate FiO2 05/13/21 18:43 97.4 73 18 103/54 (70) 97 Room Air I&O- Last 24 Hours up to 6 AM 05/13/21 06:00 Intake Total 2200 ml Output Total 900 ml Balance 1300 ml Laboratory Data Labs 24H Laboratory Tests 2 05/12/21 23:53: Nucleated Red Blood Cells % (auto) 0.0 05/13/21 05:48: Nucleated Red Blood Cells % (auto) 0.0, Anion Gap 6L, Glomerular Filtration Rate 49.5, Calcium Level 7.9L, Magnesium Level 2.1 05/13/21 13:08: Nucleated Red Blood Cells % (auto) 0.0 CBC/BMP Laboratory Tests 05/12/21 23:53 05/13/21 05:48 05/13/21 13:08 Allergies Coded Allergies: No Known Allergies (Unverified , 05/12/21) Home Medications Scheduled Amlodipine Besylate (Amlodipine Besylate) 5 Mg Tab, 5 MG PO DAILY, (Reported) Brimonidine Tartrate (Brimonidine Tartrate) 0.2 % Chandni, 1 DROP OS BID, (Reported) Cholecalciferol (Vitamin D3) (Vitamin D3) 125 Mcg Capsule, 125 MCG PO DAILY, (Reported) Dorzolamide HCl/Timolol Maleat (Dorzolamide-Timolol Eye Drops) 10 Ml Drops, 1 DROP OS TID, (Reported) PT DOES BID Dutasteride (Avodart) 0.5 Mg Capsule, 0.5 MG PO DAILY, (Reported) Hydrochlorothiazide (Hydrochlorothiazide) 25 Mg Tab, 25 MG PO DAILY, (Reported) Lisinopril (Lisinopril) 5 Mg Tab, 5 MG PO DAILY, (Reported) Multivitamin (Multivitamin) 1 Each Tablet, 1 EACH PO DAILY, (Reported) Scheduled PRN Ibuprofen (Ibuprofen) 200 Mg Capsule, 200 MG PO BID PRN for PAIN LEVEL 1-4, (Reported) JACQUELIN ARIAS MD May 13, 2021 18:59
[2021-05-13 19:30] VITALS: BP 138/77
[2021-05-13 20:07] LABS: HEMATOCRIT 24.9 % (42.0-52.0); HEMOGLOBIN 7.9 g/dl (13.5-17.5); MEAN CORPUSCULAR HEMOGLOBIN 28.6 pg (27.0-33.0); MEAN CORPUSCULAR HGB CONC 31.7 g/dl (32.0-36.5); MEAN CORPUSCULAR VOLUME 90.2 fl (80.0-96.0); PLATELET COUNT, AUTOMATED 234 10^3/uL (150-450); RED BLOOD COUNT 2.76 10^6/uL (4.30-6.10); WHITE BLOOD COUNT 10.4 10^3/uL (4.0-10.0)
[2021-05-13 20:30] VITALS: BP 131/62
[2021-05-13] MEDS: BRIMONIDINE 0.15% OPHTH SOLN 5 ML OS SCH (20:43)
[2021-05-13] MEDS: MIRALAX *UNIT DOSE* 17GM PACKET PO SCH (20:46)
[2021-05-14] VITALS (9 sets, daily range): BP systolic 139–158; BP diastolic 63–106
[2021-05-14 00:38] LABS: HEMATOCRIT 24.4 % (42.0-52.0); HEMOGLOBIN 8.2 g/dl (13.5-17.5); MEAN CORPUSCULAR HEMOGLOBIN 29.7 pg (27.0-33.0); MEAN CORPUSCULAR HGB CONC 33.6 g/dl (32.0-36.5); MEAN CORPUSCULAR VOLUME 88.4 fl (80.0-96.0); PLATELET COUNT, AUTOMATED 243 10^3/uL (150-450); RED BLOOD COUNT 2.76 10^6/uL (4.30-6.10); WHITE BLOOD COUNT 12.1 10^3/uL (4.0-10.0)
[2021-05-14 06:50] LABS: HEMATOCRIT 23.5 % (42.0-52.0); HEMOGLOBIN 7.8 g/dl (13.5-17.5); MEAN CORPUSCULAR HEMOGLOBIN 28.8 pg (27.0-33.0); MEAN CORPUSCULAR HGB CONC 33.2 g/dl (32.0-36.5); MEAN CORPUSCULAR VOLUME 86.7 fl (80.0-96.0); PLATELET COUNT, AUTOMATED 220 10^3/uL (150-450); RED BLOOD COUNT 2.71 10^6/uL (4.30-6.10)
[2021-05-14 07:11] LABS: BLOOD UREA NITROGEN 26 MG/DL (7-18); CALCIUM LEVEL 7.7 MG/DL (8.8-10.2); CARBON DIOXIDE LEVEL 25 MEQ/L (21-32); CHLORIDE LEVEL 113 MEQ/L (98-107); CREATININE FOR GFR 1.15 MG/DL (0.70-1.30); GLOMERULAR FILTRATION RATE > 60.0 (>35); GLUCOSE, FASTING 99 MG/DL (70-100); MAGNESIUM LEVEL 1.9 MG/DL (1.8-2.4); SODIUM LEVEL 144 MEQ/L (136-145)
[2021-05-14] MEDS ORDERED: KCL 10MEQ/100ML SWI (KRUN) 10 MEQ in IV 1 EA IV ONE (09:00)
[2021-05-14] MEDS ORDERED: POTASSIUM CHLORIDE 10MEQ SR TABLET PO ONE (09:00)
[2021-05-14] MEDS: MIRALAX *UNIT DOSE* 17GM PACKET PO SCH ×2 (09:33→20:24)
[2021-05-14] MEDS ORDERED: NS 1,000 ML IV SCH (10:15)
[2021-05-14] MEDS: DUTASTERIDE 0.5 MG CAP (AVODART) PO SCH (11:51)
[2021-05-14] MEDS: COSOPT OCUMETER PLUS 10ML (DORZOLAMIDE/TIMOLOL) OS SCH ×2 (11:51→20:26)
[2021-05-14] MEDS: BRIMONIDINE 0.15% OPHTH SOLN 5 ML OS SCH ×2 (11:51→20:25)
[2021-05-14] MEDS: PANTOPRAZOLE 40MG TAB (PROTONIX) PO SCH (11:55)
[2021-05-14] MEDS ORDERED: GOLYTELY SOLN 4000 ML BTL PO ONE ×2 (12:00→17:00)
--- NOTE | 2021-05-14 14:08 | IPNPDOC ---
Text Note Date of Service The patient was seen on 05/14/21. NOTE Subjective: Patient reported that in the morning he had a large bowel movement with stool covered with red blood. Objective: GENERAL APPEARANCE: NAD HEENT: no scleral icterus, no JVD, EOMI CARDIOVASCULAR: S1S2 LUNGS: Diminished lung sounds bilaterally ABDOMEN: soft & not tender w palpation MUSCULOSKELETAL: no cyanosis, no swelling INTEGUMENT: no generalized pallor NEUROLOGICAL: cranial nerve function from 2-12 intact, follows commands, speech not dysarthric Assessment and plan Patient is 85 years old male with past medical history of hypertension presented to hospital with GI bleed Acute blood loss anemia Most likely secondary to GI bleeding Patient received 1 unit of blood yesterday. Hemoglobin today 7.8 We will give additional 1 unit of blood today GI bleed EGD shows Non-bleeding gastric ulcer with a clean ulcer base GI team planned to do colonoscopy tomorrow. Bowel preparation today Continue PPI p.o. H&H every 6 hours MANDI Resolved Most likely due to kidney hypoperfusion Continue to monitor Hypertension Blood pressure under control Continue home meds with parameters Hypokalemia Replaced Glaucoma. Continue patient's home eyedrops. DVT prophylaxis: Mechanical due to GI bleeding VS,Fishbone, I+O VS, Fishbone, I+O Laboratory Tests 05/13/21 18:55 05/13/21 23:52 05/14/21 06:20 Vital Signs Date Time Temp Pulse Resp B/P (MAP) Pulse Ox O2 Delivery O2 Flow Rate FiO2 05/14/21 12:59 98.0 70 16 146/66 Room Air 05/14/21 10:39 97 I&O- Last 24 Hours up to 6 AM 05/14/21 06:00 Intake Total 2280 ml Output Total 1150 ml Balance 1130 ml OJANN JENSEN DO May 14, 2021 14:08
[2021-05-14 15:06] LABS: HEMATOCRIT 28.9 % (42.0-52.0); HEMOGLOBIN 9.6 g/dl (13.5-17.5)
[2021-05-14 20:00] LABS: HEMATOCRIT 31.2 % (42.0-52.0); HEMOGLOBIN 10.3 g/dl (13.5-17.5)
[2021-05-15 01:04] LABS: HEMATOCRIT 27.2 % (42.0-52.0); HEMOGLOBIN 9.1 g/dl (13.5-17.5)
[2021-05-15 06:00] VITALS: BP 134/75
[2021-05-15] MEDS ORDERED: propofoL 200 MG/20 ML VIAL As Ordered ONE (07:00)
[2021-05-15] MEDS ORDERED: LIDOCAINE 2% 100MG/5ML SDV (FOR ANES.) As Ordered ONE (07:00)
[2021-05-15 08:08] LABS: BASO # 0.1 10^3/uL (0.0-0.2); BASO % 0.5 % (0.0-1.0); EOS # 0.1 10^3/uL (0.0-0.5); EOS % 0.9 % (0.0-3.0); HEMATOCRIT 28.2 % (42.0-52.0); HEMOGLOBIN 9.6 g/dl (13.5-17.5); LYMPH # 2.2 10^3/uL (1.5-5.0); LYMPH % 22.3 % (24.0-44.0); MEAN CORPUSCULAR HEMOGLOBIN 29.6 pg (27.0-33.0); MONO # 0.8 10^3/uL (0.0-0.8); MONO % 8.6 % (2.0-8.0); NEUTROPHILS # 6.6 10^3/uL (1.5-8.5); PLATELET COUNT, AUTOMATED 248 10^3/uL (150-450); RED BLOOD COUNT 3.24 10^6/uL (4.30-6.10); WHITE BLOOD COUNT 9.8 10^3/uL (4.0-10.0)
[2021-05-15 08:30] LABS: BLOOD UREA NITROGEN 14 MG/DL (7-18); CALCIUM LEVEL 7.8 MG/DL (8.8-10.2); CARBON DIOXIDE LEVEL 26 MEQ/L (21-32); CHLORIDE LEVEL 109 MEQ/L (98-107); CREATININE FOR GFR 1.07 MG/DL (0.70-1.30); GLOMERULAR FILTRATION RATE > 60.0 (>35); GLUCOSE, FASTING 92 MG/DL (70-100); POTASSIUM SERUM 3.2 MEQ/L (3.5-5.1); SODIUM LEVEL 142 MEQ/L (136-145)
[2021-05-15] MEDS: MIRALAX *UNIT DOSE* 17GM PACKET PO SCH ×2 (09:02→19:57)
[2021-05-15] MEDS: PANTOPRAZOLE 40MG TAB (PROTONIX) PO SCH (09:02)
[2021-05-15] MEDS: DUTASTERIDE 0.5 MG CAP (AVODART) PO SCH (09:03)
[2021-05-15] MEDS: BRIMONIDINE 0.15% OPHTH SOLN 5 ML OS SCH ×2 (09:03→19:56)
[2021-05-15] MEDS: COSOPT OCUMETER PLUS 10ML (DORZOLAMIDE/TIMOLOL) OS SCH ×2 (09:03→19:56)
[2021-05-15 13:17] LABS: HEMATOCRIT 30.4 % (42.0-52.0); HEMOGLOBIN 10.7 g/dl (13.5-17.5)
[2021-05-15 14:00] VITALS: BP 136/74
--- NOTE | 2021-05-15 15:38 | ROOR ---
Patient Name: Terry Sykes Procedure Date: 05/15/2021 2:51 PM Date of : 1935 Age: 85 Room: [facility] Gender: Male Note Status: Finalized Procedure: Colonoscopy Indications: Hematochezia Providers: Tejinder Clark MD Referring MD: 2. Inpatient 2. Inpatient, GALLITO CROFT JR, MD Requesting Provider: Medicines: Monitored Anesthesia Care Complications: No immediate complications. Procedure: Pre-Anesthesia Assessment: - Prior to the procedure, a History and Physical was performed, and patient medications and allergies were reviewed. The patient is competent. The risks and benefits of the procedure and the sedation options and risks were discussed with the patient. All questions were answered and informed consent was obtained. Patient identification and proposed procedure were verified by the physician, the nurse and the anesthesiologist in the procedure room. Mental Status Examination: alert and oriented. Airway Examination: normal oropharyngeal airway and neck mobility. Respiratory Examination: clear to auscultation. CV Examination: normal. Prophylactic Antibiotics: The patient does not require prophylactic antibiotics. Prior Anticoagulants: The patient has taken no previous anticoagulant or antiplatelet agents. ASA Grade Assessment: III - A patient with severe systemic disease. After reviewing the risks and benefits, the patient was deemed in satisfactory condition to undergo the procedure. The anesthesia plan was to use monitored anesthesia care (MAC). Immediately prior to administration of medications, the patient was re-assessed for adequacy to receive sedatives. The heart rate, respiratory rate, oxygen saturations, blood pressure, adequacy of pulmonary ventilation, and response to care were monitored throughout the procedure. The physical status of the patient was re-assessed after the procedure. The Colonoscope was introduced through the anus and advanced to the terminal ileum, with identification of the appendiceal orifice and IC valve. The colonoscopy was performed without difficulty. The patient tolerated the procedure well. The quality of the bowel preparation was good. The terminal ileum, ileocecal valve, appendiceal orifice, and rectum were photographed. Scope insertion time was 2 minutes. Scope withdrawal time was 8 minutes. The total duration of the procedure was 12 minutes. Findings: The perianal and digital rectal examinations were normal. The terminal ileum appeared normal. Three sessile polyps were found in the ascending colon. The polyps were 4 to 10 mm in size. These polyps were removed with a cold snare. Resection and retrieval were complete. Verification of patient identification for the specimen was done by the physician and nurse using the patient's name, date and medical record number. Estimated blood loss was minimal. Multiple small and large-mouthed diverticula were found from sigmoid to cecum. There was evidence of recent bleeding from the diverticular opening. For hemostasis, one hemostatic clip was successfully placed. There was no bleeding at the end of the procedure. Non-bleeding external and internal hemorrhoids were found during retroflexion. The hemorrhoids were large. Impression: - The examined portion of the ileum was normal. - Three 4 to 10 mm polyps in the ascending colon, removed with a cold snare. Resected and retrieved. - Severe diverticulosis from sigmoid to cecum. There was evidence of recent bleeding from the diverticular opening. Clip was placed. - Non-bleeding external and internal hemorrhoids. Recommendation: - Patient has a contact number available for emergencies. The signs and symptoms of potential delayed complications were discussed with the patient. Return to normal activities tomorrow. Written discharge instructions were provided to the patient. - High fiber diet. - Continue present medications. - Miralax 1 capful (17 grams) in 8 ounces of water PO BID for atleast 7 days and then adjust dose to have one to two soft bowel movements daily. - Await pathology results. - Repeat colonoscopy is not recommended due to current age (66 years or older) for screening purposes and depending on clinical and functional status. - Telephone GI clinic for pathology results in 2 weeks. - Return to primary care physician. Procedure Code(s): --- Professional --- 39866, 59, Colonoscopy, flexible; with control of bleeding, any method 20653, Colonoscopy, flexible; with removal of tumor(s), polyp(s), or other lesion(s) by snare technique Diagnosis Code(s): --- Professional --- K64.8, Other hemorrhoids K57.31, Diverticulosis of large intestine without perforation or abscess with bleeding K63.5, Polyp of colon K92.1, Melena (includes Hematochezia) CPT copyright 2019 [employer]. All rights reserved. The codes documented in this report are preliminary and upon clinical coder review may be revised to meet current compliance requirements. Tejinder Clark MD Tejinder Clark MD 05/15/2021 3:38:35 PM Electronically signed by Tejinder Clark MD Number of Addenda: 0 Note Initiated On: 05/15/2021 2:51 PM Estimated Blood Loss: Estimated blood loss was minimal.
[2021-05-15 15:57] VITALS: BP 147/78
[2021-05-15] MEDS ORDERED: POTASSIUM CHLORIDE 10MEQ SR TABLET PO ONE (16:00)
--- NOTE | 2021-05-15 16:09 | IPNPDOC ---
Text Note Date of Service The patient was seen on 05/15/21. NOTE Subjective: Patient reported that in the morning he had a bowel movement with stool covered with red blood. Objective: GENERAL APPEARANCE: NAD HEENT: no scleral icterus, no JVD, EOMI CARDIOVASCULAR: S1S2 LUNGS: Diminished lung sounds bilaterally ABDOMEN: soft & not tender w palpation MUSCULOSKELETAL: no cyanosis, no swelling INTEGUMENT: no generalized pallor NEUROLOGICAL: cranial nerve function from 2-12 intact, follows commands, speech not dysarthric Assessment and plan Patient is 85 years old male with past medical history of hypertension presented to hospital with GI bleed Acute blood loss anemia Most likely secondary to GI bleeding Patient received 1 unit of blood yesterday. Hemoglobin stable today GI bleed EGD shows Non-bleeding gastric ulcer with a clean ulcer base GI team did colonoscopy, patient was found to have Three 4 to 10 mm polyps in the ascending colon. Severe diverticulosis from sigmoid to cecum. There was evidence of recent bleeding from the diverticular opening. Clip was placed GI team recommended Miralax 1 capful (17 grams) in 8 ounces of water PO BID for atleast 7 days and then adjust dose to have one to two soft bowel movements daily Continue PPI p.o. MANDI Resolved Most likely due to kidney hypoperfusion Continue to monitor Hypertension Blood pressure under control Continue home meds with parameters Hypokalemia Replaced Glaucoma. Continue patient's home eyedrops. DVT prophylaxis: Mechanical due to GI bleeding VS,Fishbone, I+O VS, Fishbone, I+O Laboratory Tests 05/14/21 19:34 05/15/21 00:58 05/15/21 07:19 05/15/21 12:42 Vital Signs Date Time Temp Pulse Resp B/P (MAP) Pulse Ox O2 Delivery O2 Flow Rate FiO2 05/15/21 15:57 98.4 81 16 147/78 (101) 99 Room Air I&O- Last 24 Hours up to 6 AM 05/15/21 05:59 Intake Total 2605 ml Output Total 600 ml Balance 2004 ml JOANN JENSEN DO May 15, 2021 16:09
[2021-05-15 22:00] VITALS: BP 144/76
[2021-05-16 06:00] VITALS: BP 147/75
[2021-05-16 10:00] VITALS: BP 147/75
[2021-05-16] MEDS: BRIMONIDINE 0.15% OPHTH SOLN 5 ML OS SCH (10:00)
[2021-05-16] MEDS: MIRALAX *UNIT DOSE* 17GM PACKET PO SCH (10:00)
[2021-05-16] MEDS: PANTOPRAZOLE 40MG TAB (PROTONIX) PO SCH (10:00)
[2021-05-16] MEDS: DUTASTERIDE 0.5 MG CAP (AVODART) PO SCH (10:01)
[2021-05-16] MEDS: COSOPT OCUMETER PLUS 10ML (DORZOLAMIDE/TIMOLOL) OS SCH (10:01)
[2021-05-16] MEDS ORDERED: PANT40TA29 PO (11:01)
[2021-05-16] MEDS ORDERED: MIRA1POW3 PO (11:01)
[2021-05-16] MEDS ORDERED: ACET1TAB55 PO (11:01)
[2021-05-16] MEDS ORDERED: AMLO1TAB25 PO (11:01)
--- NOTE | 2021-05-16 16:13 | DS.PDOC ---
Discharge Summary General Date of Admission May 12, 2021 at 15:41 Date of Discharge 05/16/21 Discharge Summary PROCEDURES PERFORMED DURING STAY: EGD and colonoscopy ADMITTING DIAGNOSES: Acute blood loss anemia GI bleed MANDI Hypertension Hypokalemia Glaucoma DISCHARGE DIAGNOSES: Acute blood loss anemia GI bleed MANDI Hypertension Hypokalemia Glaucoma COMPLICATIONS/CHIEF COMPLAINT: Lgi Bleed. HISTORY OF PRESENT ILLNESS: Patient is an 85-year-old male who presented to the emergency department today with a 1 week history of dark stools. Patient states that his stools were his normal brown and solid up in about 1 week ago and they became very soft if not liquid and black. Patient states that he does not have any abdominal pain. Patient has noticed increased bowel movements. Patient states he is try to switch to a soft diet to help with this however, this has no t helped. Patient denies any chest pain or abdominal pain at this time. Patient states he is having difficulty catching his wind but this has been going on for greater than 1 week. Patient does notice that it is mildly worse over the last week. Patient denies having any other symptoms at this time. Patient does have a history of diverticulosis and had a lower GI bleed in 2007 according to the emergency department provider. Patient is otherwise feeling well today HOSPITAL COURSE: During their hospital stay the following history addressed Acute blood loss anemia Most likely secondary to GI bleeding Patient received 2 units of blood transfusion in total. Hemoglobin stable today GI bleed EGD shows Non-bleeding gastric ulcer with a clean ulcer base GI team did colonoscopy, patient was found to have Three 4 to 10 mm polyps in the ascending colon. Severe diverticulosis from sigmoid to cecum. There was evidence of recent bleeding from the diverticular opening. Clip was placed GI team recommended Miralax 1 capful (17 grams) in 8 ounces of water PO BID for atleast 7 days and then adjust dose to have one to two soft bowel movements daily Continue PPI p.o. MANDI Resolved Most likely due to kidney hypoperfusion Continue to monitor Hypertension Blood pressure under control Continue home meds with parameters Hypokalemia Replaced Glaucoma. Continue patient's home eyedrops. DISCHARGE MEDICATIONS: Please see below. ALLERGIES: Please see below. PHYSICAL EXAMINATION ON DISCHARGE: VITAL SIGNS: Please see below. GENERAL APPEARANCE: NAD HEENT: no scleral icterus, no JVD, EOMI CARDIOVASCULAR: S1S2 LUNGS: Diminished lung sounds bilaterally ABDOMEN: soft & not tender w palpation MUSCULOSKELETAL: no cyanosis, no swelling INTEGUMENT: no generalized pallor NEUROLOGICAL: cranial nerve function from 2-12 intact, follows commands, speech not dysarthric LABORATORY DATA: Please see below. IMAGING: See above PROGNOSIS: Fair ACTIVITY: [As tolerated]. DIET: Cardiac DISPOSITION: Home, Self-Care. DISCHARGE INSTRUCTIONS: See above ITEMS TO FOLLOWUP ON ON OUTPATIENT: Follow-up with GI team and PCP DISCHARGE CONDITION: [Stable]. TIME SPENT ON DISCHARGE:40 minutes. Vital Signs/I&Os Vital Signs Date Time Temp Pulse Resp B/P (MAP) Pulse Ox O2 Delivery O2 Flow Rate FiO2 05/16/21 10:00 69 147/75 05/16/21 06:00 97.3 19 96 Room Air I&O- Last 24 Hours up to 6 AM 05/16/21 06:00 Intake Total 1620 ml Output Total 0 ml Balance 1620 ml Discharge Medications Scheduled Amlodipine Besylate (Amlodipine Besylate) 10 Mg Tablet, 10 MG PO DAILY Brimonidine Tartrate (Brimonidine Tartrate) 0.2 % Chandni, 1 DROP OS BID, (Reported) Cholecalciferol (Vitamin D3) (Vitamin D3) 125 Mcg Capsule, 125 MCG PO DAILY, (Reported) Dorzolamide HCl/Timolol Maleat (Dorzolamide-Timolol Eye Drops) 10 Ml Drops, 1 DROP OS TID, (Reported) PT DOES BID Dutasteride (Avodart) 0.5 Mg Capsule, 0.5 MG PO DAILY, (Reported) Hydrochlorothiazide (Hydrochlorothiazide) 25 Mg Tab, 25 MG PO DAILY, (Reported) Lisinopril (Lisinopril) 5 Mg Tab, 5 MG PO DAILY, (Reported) Multivitamin (Multivitamin) 1 Each Tablet, 1 EACH PO DAILY, (Reported) Pantoprazole Sodium (Pantoprazole Sodium) 40 Mg Tablet.dr, 40 MG PO DAILY Polyethylene Glycol 3350 (Miralax) 17 Gm Powd.pack, 1 PKT PO BID Scheduled PRN Acetaminophen (Acetaminophen) 325 Mg Tablet, 650 MG PO Q4H PRN for MILD PAIN or TEMP > 101 Allergies Coded Allergies: No Known Allergies (Unverified , 05/12/21) JOANN JENSEN DO May 16, 2021 16:13
== END 2021-05-16 12:15 | disposition home or self-care (01) | DRG 378 ==
LOC: M ED 12:58 → M ED INP 15:41 → ENRESERV 16:17 → M MS5PR 18:30
PROVIDERS: ADMIT Family Medicine; ATTEND Internal Medicine
PROC: 30233N1 Transfusion of Nonautologous Red Blood Cells into Peripheral Vein, Percutaneous Approach (ICD-10-PCS; 2021-05-12)
PROC: 0DB78ZX Excision of Stomach, Pylorus, Via Natural or Artificial Opening Endoscopic, Diagnostic (ICD-10-PCS; principal; 2021-05-13 08:00)
PROC: 0DBK8ZX Excision of Ascending Colon, Via Natural or Artificial Opening Endoscopic, Diagnostic (ICD-10-PCS; 2021-05-15)
PROC: 0W3P8ZZ Control Bleeding in Gastrointestinal Tract, Via Natural or Artificial Opening Endoscopic (ICD-10-PCS; 2021-05-15)
DX: K57.31 Diverticulosis of large intestine without perforation or abscess with bleeding (principal); N17.9 Acute kidney failure, unspecified; D62 Acute posthemorrhagic anemia; I10 Essential (primary) hypertension; H40.9 Unspecified glaucoma; E87.6 Hypokalemia; K63.5 Polyp of colon; K64.8 Other hemorrhoids; Z66 Do not resuscitate; K25.9 Gastric ulcer, unspecified as acute or chronic, without hemorrhage or perforation; Z20.822 Contact with and (suspected) exposure to COVID-19; Z79.899 Other long term (current) drug therapy; Z90.49 Acquired absence of other specified parts of digestive tract

== ENCOUNTER → 2021-12-22 | Outpatient (CLI) | payer MEDICARE ==
[~2021-12-22] MED LIST changes: +ACET1TAB55 PO; +AMLO1TAB25 PO; +AVOD0.5C PO; +D3 U5000 PO; +DORZ2SOL5 OS; +IBUP200C25 PO; -LISI-898 PO; +LISI5TAB11 PO; +MIRA1POW3 PO; +MULT-90 PO; +PANT40TA29 PO
== END ==
LOC: M ADAMS 10:52
PROVIDERS: ATTEND Nurse Practitioner Adult Health
DX: R05.9 Cough, unspecified (principal)

== ENCOUNTER 2022-03-02 13:27 | Inpatient (IN) | payer MEDICARE ==
[2022-03-02] VITALS (8 sets, daily range): BP systolic 118–159; BP diastolic 58–73
[2022-03-02] MEDS ORDERED: PANTOPRAZOLE 40MG VIAL IV ONE (14:20)
[2022-03-02 14:47] LABS: BASO # 0.1 10^3/uL (0.0-0.2); BASO % 0.5 % (0.0-1.0); EOS # 0.1 10^3/uL (0.0-0.5); EOS % 0.8 % (0.0-3.0); HEMATOCRIT 26.7 % (42.0-52.0); LYMPH # 2.6 10^3/uL (1.5-5.0); LYMPH % 26.9 % (24.0-44.0); MEAN CORPUSCULAR HEMOGLOBIN 29.2 pg (27.0-33.0); MEAN CORPUSCULAR HGB CONC 33.7 g/dl (32.0-36.5); MEAN CORPUSCULAR VOLUME 86.7 fl (80.0-96.0); MONO # 0.7 10^3/uL (0.0-0.8); MONO % 7.1 % (2.0-8.0); NEUTROPHILS # 6.2 10^3/uL (1.5-8.5); NEUTROPHILS % 64.2 % (36.0-66.0); PLATELET COUNT, AUTOMATED 280 10^3/uL (150-450); RED BLOOD COUNT 3.08 10^6/uL (4.30-6.10); WHITE BLOOD COUNT 9.7 10^3/uL (4.0-10.0)
[2022-03-02 15:01] LABS: INR 1.06; PROTHROMBIN TIME 14.2 SECONDS (12.7-14.5)
[2022-03-02 15:02] LABS: PARTIAL THROMBOPLASTIN TIME 23.4 SECONDS (25.9-37.0)
[2022-03-02 15:29] LABS: ALBUMIN 2.9 GM/DL (3.2-5.2); ALT/SGPT 17 U/L (12-78); BILIRUBIN,DIRECT < 0.1 MG/DL (0.0-0.2); BILIRUBIN,TOTAL 0.3 MG/DL (0.2-1.0); BLOOD UREA NITROGEN 40 MG/DL (7-18); CALCIUM LEVEL 8.3 MG/DL (8.8-10.2); CARBON DIOXIDE LEVEL 27 MEQ/L (21-32); CHLORIDE LEVEL 107 MEQ/L (98-107); CREATININE FOR GFR 1.56 MG/DL (0.70-1.30); GLUCOSE, FASTING 118 MG/DL (70-100); LIPASE 121 U/L (73-393); POTASSIUM SERUM 3.6 MEQ/L (3.5-5.1); SODIUM LEVEL 138 MEQ/L (136-145); TOTAL PROTEIN 5.7 GM/DL (6.4-8.2)
[2022-03-02] MEDS ORDERED: ISOVUE-370 76% 100ML VIAL As Ordered ONE (15:41)
[2022-03-02] MEDS ORDERED: MELO7.5T35 PO (18:23)
[2022-03-02] MEDS ORDERED: AMLO1TAB24 PO (18:23)
[2022-03-02] MEDS ORDERED: HOME MED LIST COMPLETE! XX SCH (18:25)
[2022-03-02 18:37] LABS: RSV AMPLIFICATION NEGATIVE (NEGATIVE)
[2022-03-02] MEDS: KCL 10MEQ IN D5/0.45NS 1000ML 1,000 ML IV SCH (23:09)
[2022-03-03 00:28] LABS: HEMATOCRIT 30.2 % (42.0-52.0); HEMOGLOBIN 10.3 g/dl (13.5-17.5)
[2022-03-03] MEDS: PANTOPRAZOLE 40MG VIAL IV SCH ×2 (03:44→15:02)
[2022-03-03 05:52] VITALS: BP 122/60
[2022-03-03] MEDS: KCL 10MEQ IN D5/0.45NS 1000ML 1,000 ML IV SCH ×3 (07:20→18:44)
[2022-03-03 07:30] LABS: HEMATOCRIT 28.4 % (42.0-52.0); HEMOGLOBIN 9.8 g/dl (13.5-17.5); MEAN CORPUSCULAR HEMOGLOBIN 29.2 pg (27.0-33.0); MEAN CORPUSCULAR HGB CONC 34.5 g/dl (32.0-36.5); MEAN CORPUSCULAR VOLUME 84.5 fl (80.0-96.0); PLATELET COUNT, AUTOMATED 250 10^3/uL (150-450); RED BLOOD COUNT 3.36 10^6/uL (4.30-6.10); WHITE BLOOD COUNT 8.9 10^3/uL (4.0-10.0)
[2022-03-03 08:05] LABS: CALCIUM LEVEL 8.1 MG/DL (8.8-10.2); CREATININE FOR GFR 1.36 MG/DL (0.70-1.30); GLOMERULAR FILTRATION RATE 52.8 (>35); POTASSIUM SERUM 3.3 MEQ/L (3.5-5.1)
[2022-03-03 12:48] LABS: BASO # 0.1 10^3/uL (0.0-0.2); BASO % 0.8 % (0.0-1.0); EOS # 0.2 10^3/uL (0.0-0.5); EOS % 1.8 % (0.0-3.0); HEMATOCRIT 30.2 % (42.0-52.0); HEMOGLOBIN 10.3 g/dl (13.5-17.5); LYMPH # 2.3 10^3/uL (1.5-5.0); LYMPH % 27.8 % (24.0-44.0); MEAN CORPUSCULAR HGB CONC 34.1 g/dl (32.0-36.5); MEAN CORPUSCULAR VOLUME 85.1 fl (80.0-96.0); MONO # 0.7 10^3/uL (0.0-0.8); MONO % 8.4 % (2.0-8.0); NEUTROPHILS # 5.1 10^3/uL (1.5-8.5); NEUTROPHILS % 60.6 % (36.0-66.0); PLATELET COUNT, AUTOMATED 268 10^3/uL (150-450); RED BLOOD COUNT 3.55 10^6/uL (4.30-6.10); WHITE BLOOD COUNT 8.4 10^3/uL (4.0-10.0)
[2022-03-03 12:49] LABS: HEMATOCRIT 30.5 % (42.0-52.0); HEMOGLOBIN 10.1 g/dl (13.5-17.5)
[2022-03-03 13:20] LABS: ALBUMIN 2.8 GM/DL (3.2-5.2); BILIRUBIN,TOTAL 0.7 MG/DL (0.2-1.0); CALCIUM LEVEL 8.4 MG/DL (8.8-10.2); CREATININE FOR GFR 1.31 MG/DL (0.70-1.30); GLOMERULAR FILTRATION RATE 55.1 (>35); POTASSIUM SERUM 3.1 MEQ/L (3.5-5.1); TOTAL PROTEIN 5.9 GM/DL (6.4-8.2)
[2022-03-03] MEDS ORDERED: POTASSIUM CHLORIDE 10MEQ SR TABLET PO ONE (13:35)
[2022-03-03 14:00] VITALS: BP 125/70
[2022-03-03] MEDS ORDERED: ISOVUE-370 76% 100ML VIAL As Ordered ONE (15:52)
[2022-03-03] MEDS: OCTREOTIDE ACETATE 100MCG/ML VIAL **IV ADMINISTRATION ONLY IV SCH (15:56)
[2022-03-03] MEDS ORDERED: OCTREOTIDE ACETATE 100MCG/ML VIAL **SC ADMINISTRATION ONLY SC SCH (16:00)
[2022-03-03] MEDS: SUCRALFATE SUSP 1GM/10ML UD PO SCH ×2 (17:46→20:04)
[2022-03-03 18:10] LABS: HEMATOCRIT 31.7 % (42.0-52.0); HEMOGLOBIN 10.9 g/dl (13.5-17.5)
[2022-03-03 20:37] VITALS: BP 161/78
[2022-03-03] MEDS ORDERED: COSOPT OCUMETER PLUS 10ML (DORZOLAMIDE/TIMOLOL) OS SCH (21:00)
[2022-03-03] MEDS ORDERED: BRIMONIDINE 0.2% OS SCH (21:00)
[2022-03-03 21:15] LABS: HEMATOCRIT 30.9 % (42.0-52.0); HEMOGLOBIN 10.6 g/dl (13.5-17.5)
[2022-03-03] MEDS: amLODIPine 5 MG TAB PO SCH (23:21)
[2022-03-04 00:01] LABS: HEMATOCRIT 30.3 % (42.0-52.0); HEMOGLOBIN 10.5 g/dl (13.5-17.5)
[2022-03-04] MEDS ORDERED: UNRESOLVED PATIENT OWN MED ORDER XX SCH (00:01)
[2022-03-04] MEDS: OCTREOTIDE ACETATE 100MCG/ML VIAL **IV ADMINISTRATION ONLY IV SCH ×4 (00:29→23:38)
[2022-03-04] MEDS: PANTOPRAZOLE 40MG VIAL IV SCH ×2 (03:29→15:28)
[2022-03-04] MEDS: KCL 10MEQ IN D5/0.45NS 1000ML 1,000 ML IV SCH (05:38)
[2022-03-04 06:08] VITALS: BP 143/72
[2022-03-04 07:29] LABS: HEMATOCRIT 30.6 % (42.0-52.0); HEMOGLOBIN 10.4 g/dl (13.5-17.5); MEAN CORPUSCULAR HEMOGLOBIN 29.4 pg (27.0-33.0); MEAN CORPUSCULAR VOLUME 86.4 fl (80.0-96.0); PLATELET COUNT, AUTOMATED 255 10^3/uL (150-450); RED BLOOD COUNT 3.54 10^6/uL (4.30-6.10); WHITE BLOOD COUNT 10.6 10^3/uL (4.0-10.0)
[2022-03-04] MEDS: DUTASTERIDE 0.5 MG CAP (AVODART) PO SCH (08:09)
[2022-03-04] MEDS: amLODIPine 5 MG TAB PO SCH (08:09)
[2022-03-04] MEDS: SUCRALFATE SUSP 1GM/10ML UD PO SCH ×4 (08:10→20:18)
[2022-03-04] MEDS: lisinopriL 5 MG TAB PO SCH (08:10)
[2022-03-04] MEDS: COSOPT OCUMETER PLUS 10ML (DORZOLAMIDE/TIMOLOL) OS SCH ×2 (08:10→20:18)
[2022-03-04 08:13] LABS: CALCIUM LEVEL 8.5 MG/DL (8.8-10.2); CREATININE FOR GFR 1.37 MG/DL (0.70-1.30); GLOMERULAR FILTRATION RATE 52.3 (>35); POTASSIUM SERUM 4.2 MEQ/L (3.5-5.1)
[2022-03-04] MEDS: BRIMONIDINE 0.15% OPHTH SOLN 5 ML OS SCH ×2 (09:00→20:19)
[2022-03-04] MEDS ORDERED: amLODIPine 5 MG TAB PO SCH (09:00)
[2022-03-04] MEDS ORDERED: NS 1,000 ML IV SCH (10:55)
[2022-03-04 12:22] LABS: HEMOGLOBIN 10.7 g/dl (13.5-17.5)
[2022-03-04] MEDS: NS 1,000 ML IV SCH (18:31)
[2022-03-04 18:38] LABS: HEMATOCRIT 30.7 % (42.0-52.0); HEMOGLOBIN 10.6 g/dl (13.5-17.5)
[2022-03-04 22:00] VITALS: BP 138/78
[2022-03-05] MEDS: PANTOPRAZOLE 40MG VIAL IV SCH ×2 (03:36→16:26)
[2022-03-05] MEDS: NS 1,000 ML IV SCH ×2 (03:40→07:30)
[2022-03-05 06:00] VITALS: BP 132/70
[2022-03-05 06:29] LABS: HEMATOCRIT 30.9 % (42.0-52.0); HEMOGLOBIN 10.4 g/dl (13.5-17.5); MEAN CORPUSCULAR HEMOGLOBIN 29.2 pg (27.0-33.0); MEAN CORPUSCULAR HGB CONC 33.7 g/dl (32.0-36.5); MEAN CORPUSCULAR VOLUME 86.8 fl (80.0-96.0); PLATELET COUNT, AUTOMATED 277 10^3/uL (150-450); RED BLOOD COUNT 3.56 10^6/uL (4.30-6.10); WHITE BLOOD COUNT 9.2 10^3/uL (4.0-10.0)
[2022-03-05 06:52] LABS: CALCIUM LEVEL 7.9 MG/DL (8.8-10.2); CREATININE FOR GFR 1.27 MG/DL (0.70-1.30); GLOMERULAR FILTRATION RATE 57.1 (>35); POTASSIUM SERUM 3.5 MEQ/L (3.5-5.1)
[2022-03-05] MEDS: OCTREOTIDE ACETATE 100MCG/ML VIAL **IV ADMINISTRATION ONLY IV SCH ×2 (08:09→16:27)
[2022-03-05] MEDS: SUCRALFATE SUSP 1GM/10ML UD PO SCH ×4 (08:09→20:57)
[2022-03-05 09:00] VITALS: BP 138/70
[2022-03-05] MEDS: COSOPT OCUMETER PLUS 10ML (DORZOLAMIDE/TIMOLOL) OS SCH ×2 (09:00→20:57)
[2022-03-05] MEDS: lisinopriL 5 MG TAB PO SCH (09:59)
[2022-03-05] MEDS: amLODIPine 5 MG TAB PO SCH (10:00)
[2022-03-05] MEDS: DUTASTERIDE 0.5 MG CAP (AVODART) PO SCH (10:01)
[2022-03-05] MEDS: BRIMONIDINE 0.15% OPHTH SOLN 5 ML OS SCH ×2 (10:11→20:58)
[2022-03-05 14:00] VITALS: BP 158/82
[2022-03-05 18:25] LABS: HEMATOCRIT 29.7 % (42.0-52.0); HEMOGLOBIN 10.2 g/dl (13.5-17.5)
[2022-03-05 21:28] VITALS: BP 138/72
[2022-03-06] MEDS: OCTREOTIDE ACETATE 100MCG/ML VIAL **IV ADMINISTRATION ONLY IV SCH ×4 (00:41→17:29)
[2022-03-06] MEDS: PANTOPRAZOLE 40MG VIAL IV SCH ×2 (03:03→17:28)
[2022-03-06 05:56] VITALS: BP 157/81
[2022-03-06] MEDS: SUCRALFATE SUSP 1GM/10ML UD PO SCH ×4 (08:09→19:55)
[2022-03-06] MEDS: lisinopriL 5 MG TAB PO SCH (08:10)
[2022-03-06] MEDS: amLODIPine 5 MG TAB PO SCH (08:10)
[2022-03-06] MEDS: COSOPT OCUMETER PLUS 10ML (DORZOLAMIDE/TIMOLOL) OS SCH ×2 (08:11→19:57)
[2022-03-06] MEDS: BRIMONIDINE 0.15% OPHTH SOLN 5 ML OS SCH ×2 (08:11→19:56)
[2022-03-06] MEDS: DUTASTERIDE 0.5 MG CAP (AVODART) PO SCH (08:11)
[2022-03-06 08:40] LABS: BASO # 0.1 10^3/uL (0.0-0.2); BASO % 0.6 % (0.0-1.0); EOS # 0.1 10^3/uL (0.0-0.5); EOS % 1.4 % (0.0-3.0); HEMATOCRIT 31.2 % (42.0-52.0); HEMOGLOBIN 10.7 g/dl (13.5-17.5); LYMPH # 2.5 10^3/uL (1.5-5.0); LYMPH % 25.6 % (24.0-44.0); MEAN CORPUSCULAR HEMOGLOBIN 29.6 pg (27.0-33.0); MEAN CORPUSCULAR HGB CONC 34.3 g/dl (32.0-36.5); MEAN CORPUSCULAR VOLUME 86.2 fl (80.0-96.0); MONO # 0.9 10^3/uL (0.0-0.8); MONO % 9.6 % (2.0-8.0); NEUTROPHILS % 62.2 % (36.0-66.0); PLATELET COUNT, AUTOMATED 304 10^3/uL (150-450); RED BLOOD COUNT 3.62 10^6/uL (4.30-6.10); WHITE BLOOD COUNT 9.7 10^3/uL (4.0-10.0)
[2022-03-06 09:15] LABS: ALBUMIN 2.9 GM/DL (3.2-5.2); BILIRUBIN,TOTAL 0.5 MG/DL (0.2-1.0); CALCIUM LEVEL 8.5 MG/DL (8.8-10.2); CREATININE FOR GFR 1.49 MG/DL (0.70-1.30); GLOMERULAR FILTRATION RATE 47.5 (>35); POTASSIUM SERUM 3.5 MEQ/L (3.5-5.1); TOTAL PROTEIN 5.9 GM/DL (6.4-8.2)
[2022-03-06] MEDS ORDERED: SODIUM CHLORIDE 0.9% 1000ML IV ONE (10:55)
[2022-03-06] MEDS: NS 1,000 ML IV SCH ×2 (12:35→22:36)
[2022-03-06 14:00] VITALS: BP 140/78
[2022-03-06 16:40] LABS: CALCIUM LEVEL 7.9 MG/DL (8.8-10.2); CREATININE FOR GFR 1.52 MG/DL (0.70-1.30); GLOMERULAR FILTRATION RATE 46.4 (>35); POTASSIUM SERUM 2.8 MEQ/L (3.5-5.1)
[2022-03-06] MEDS ORDERED: POTASSIUM CHLORIDE 10MEQ SR TABLET PO ONE ×2 (16:55→19:35)
[2022-03-06] MEDS ORDERED: KCL 10MEQ/100ML SWI (KRUN) 10 MEQ in IV 1 EA IV ONE (17:00)
[2022-03-06 20:23] VITALS: BP 142/86
[2022-03-06 21:52] LABS: CREATININE FOR GFR 1.52 MG/DL (0.70-1.30); GLOMERULAR FILTRATION RATE 46.4 (>35); POTASSIUM SERUM 3.5 MEQ/L (3.5-5.1)
[2022-03-07] MEDS: OCTREOTIDE ACETATE 100MCG/ML VIAL **IV ADMINISTRATION ONLY IV SCH ×2 (00:08→08:07)
[2022-03-07] MEDS: PANTOPRAZOLE 40MG VIAL IV SCH (03:01)
[2022-03-07 06:24] LABS: HEMATOCRIT 29.5 % (42.0-52.0); HEMOGLOBIN 9.9 g/dl (13.5-17.5); MEAN CORPUSCULAR HEMOGLOBIN 28.9 pg (27.0-33.0); MEAN CORPUSCULAR HGB CONC 33.6 g/dl (32.0-36.5); MEAN CORPUSCULAR VOLUME 86.3 fl (80.0-96.0); PLATELET COUNT, AUTOMATED 294 10^3/uL (150-450); RED BLOOD COUNT 3.42 10^6/uL (4.30-6.10); WHITE BLOOD COUNT 9.5 10^3/uL (4.0-10.0)
[2022-03-07] MEDS: NS 1,000 ML IV SCH (07:00)
[2022-03-07 07:03] LABS: CALCIUM LEVEL 8.2 MG/DL (8.8-10.2); CREATININE FOR GFR 1.38 MG/DL (0.70-1.30); GLOMERULAR FILTRATION RATE 51.9 (>35); POTASSIUM SERUM 3.8 MEQ/L (3.5-5.1)
[2022-03-07] MEDS: DUTASTERIDE 0.5 MG CAP (AVODART) PO SCH (08:07)
[2022-03-07] MEDS: SUCRALFATE SUSP 1GM/10ML UD PO SCH ×2 (08:07→12:29)
[2022-03-07 08:08] VITALS: BP 157/81
[2022-03-07] MEDS: BRIMONIDINE 0.15% OPHTH SOLN 5 ML OS SCH (08:08)
[2022-03-07] MEDS: lisinopriL 5 MG TAB PO SCH (08:08)
[2022-03-07] MEDS: COSOPT OCUMETER PLUS 10ML (DORZOLAMIDE/TIMOLOL) OS SCH (08:08)
[2022-03-07] MEDS: amLODIPine 5 MG TAB PO SCH (08:08)
[2022-03-07 13:48] LABS: CALCIUM LEVEL 8.1 MG/DL (8.8-10.2); CREATININE FOR GFR 1.34 MG/DL (0.70-1.30); GLOMERULAR FILTRATION RATE 53.7 (>35); POTASSIUM SERUM 3.5 MEQ/L (3.5-5.1)
[2022-03-07 14:00] VITALS: BP 140/72
[2022-03-07] MEDS ORDERED: PANT40TA29 PO (14:54)
== END 2022-03-07 16:00 | disposition home or self-care (01) | DRG 378 ==
LOC: M ED 13:27 → M ED INP 17:03 → M MS5PR 22:25
PROVIDERS: ADMIT General Practice; ATTEND Family Medicine
PROC: 30233N1 Transfusion of Nonautologous Red Blood Cells into Peripheral Vein, Percutaneous Approach (ICD-10-PCS; principal; 2022-03-02)
DX: K92.2 Gastrointestinal hemorrhage, unspecified (principal); D62 Acute posthemorrhagic anemia; I12.9 Hypertensive chronic kidney disease with stage 1 through stage 4 chronic kidney disease, or unspecified chronic kidney disease; H40.9 Unspecified glaucoma; K64.8 Other hemorrhoids; M51.35 Other intervertebral disc degeneration, thoracolumbar region; K44.9 Diaphragmatic hernia without obstruction or gangrene; K40.20 Bilateral inguinal hernia, without obstruction or gangrene, not specified as recurrent; I25.10 Atherosclerotic heart disease of native coronary artery without angina pectoris; I70.0 Atherosclerosis of aorta; N18.9 Chronic kidney disease, unspecified; Z79.1 Long term (current) use of non-steroidal anti-inflammatories (NSAID); Z79.899 Other long term (current) drug therapy; Z86.010 Personal history of colon polyps; Z90.49 Acquired absence of other specified parts of digestive tract

== ENCOUNTER → 2022-03-09 | Outpatient (REF) | payer MEDICARE ==
[~2022-03-09] MED LIST changes: +MELO7.5T35 PO
[2022-03-09 23:25] LABS: HEMATOCRIT 31.8 % (42.0-52.0)
== END ==
LOC: M LAB REF 16:21
PROVIDERS: ATTEND Nurse Practitioner Adult Health
DX: D64.9 Anemia, unspecified (principal)

== ENCOUNTER → 2023-05-14 | Outpatient (REF) | payer MEDICARE ==
[2023-05-14 18:53] LABS: PERCENT SATURATION 18.6 % (19.7-50.0)
[2023-05-14 18:57] LABS: FERRITIN 87.3 NG/ML (10.5-307.3)
== END ==
LOC: M LAB REF 17:37
PROVIDERS: ATTEND Internal Medicine
DX: D64.9 Anemia, unspecified (principal)

== ENCOUNTER → 2023-05-17 | Outpatient (CLI) | payer MEDICARE | LOC: M WUC 15:41 | PROVIDERS: ATTEND Nurse Practitioner Adult Health | DX: R05.9 Cough, unspecified (principal) ==

== ENCOUNTER → 2023-09-20 | Outpatient (CLI) | payer MEDICARE ==
[~2023-09-20] MED LIST changes: -MIRA1POW3 PO; +MIRA33506 PO
[2023-09-20 12:55] LABS: HEMATOCRIT 41.1 % (42.0-52.0); HEMOGLOBIN 13.6 g/dl (13.5-17.5); MEAN CORPUSCULAR HEMOGLOBIN 28.4 pg (27.0-33.0); MEAN CORPUSCULAR HGB CONC 33.1 g/dl (32.0-36.5); MEAN CORPUSCULAR VOLUME 85.8 fl (80.0-96.0); PLATELET COUNT, AUTOMATED 320 10^3/uL (150-450); RED BLOOD COUNT 4.79 10^6/uL (4.30-6.10); WHITE BLOOD COUNT 10.3 10^3/uL (4.0-10.0)
[2023-09-20 13:19] LABS: ERYTHROCYTE SEDIMENTATION RATE 58 mm/hr (0-20)
[2023-09-20 13:20] LABS: INR 1.05; PROTHROMBIN TIME 13.4 SECONDS (12.5-14.5)
[2023-09-20 13:21] LABS: ALBUMIN 3.3 G/DL (3.2-5.2); BILIRUBIN,TOTAL 0.5 MG/DL (0.3-1.2); CALCIUM LEVEL 8.7 MG/DL (8.3-10.6); CREATININE FOR GFR 1.35 MG/DL (0.70-1.30); GLOMERULAR FILTRATION RATE 53.1 (>35); POTASSIUM SERUM 4.5 MMOL/L (3.5-5.1); TOTAL PROTEIN 6.6 G/DL (5.7-8.2)
== END ==
LOC: M RAD 11:37
PROVIDERS: ATTEND Orthopaedic Surgery
DX: M17.11 Unilateral primary osteoarthritis, right knee (principal); Z79.01 Long term (current) use of anticoagulants

== ENCOUNTER → 2023-12-30 | Outpatient (REF) | payer MEDICARE ==
[2023-12-30 17:22] LABS: APPEARANCE, URINE HAZY (CLEAR); BACTERIA, URINE AUTO NEGATIVE (NEGATIVE); BILIRUBIN, URINE AUTO NEGATIVE (NEGATIVE); BLOOD, URINE BLOOD NEGATIVE (NEGATIVE); CALCIUM OXALATE CRYSTALS SMALL; COLOR, URINE AMBER (YELLOW); GLUCOSE, URINE (UA) AUTO NEGATIVE (NEGATIVE); KETONE, URINE AUTO NEGATIVE (NEGATIVE); LEUKOCYTE ESTERASE, URINE AUTO 1+ (NEGATIVE); MUCUS, URINE SMALL (NEGATIVE); NITRITE, URINE AUTO NEGATIVE (NEGATIVE); PROTEIN, URINE AUTO 1+ mg/dL (NEGATIVE); RBC, URINE AUTO 0 /HPF (0-3); SPECIFIC GRAVITY URINE AUTO 1.033 (1.002-1.035); SQUAMOUS EPITHELIAL CELL UR AU 1 /HPF (0-6); WBC, URINE AUTO 3 /HPF (0-3)
== END ==
LOC: M LAB REF 16:23
PROVIDERS: ATTEND Nurse Practitioner Adult Health
DX: R35.1 Nocturia (principal)

== ENCOUNTER → 2024-01-04 | Outpatient (CLI) | payer MEDICARE | LOC: M RAD 06:41 | PROVIDERS: ATTEND Orthopaedic Surgery | DX: M16.11 Unilateral primary osteoarthritis, right hip (principal) ==